=== PATIENT | female | born 1965 | race Caucasian/White ===

== ENCOUNTER 2020-07-27 06:53 | Observation (INO) ==
[2020-07-27] MEDS ORDERED: BUPIVACAINE 0.25% 30 ML VIAL ONE (07:05)
[2020-07-27] MEDS ORDERED: LIDOCAINE HCL 1% 20 ML VIAL ONE (07:05)
[2020-07-27] MEDS ORDERED: BACITRACIN INJ 50,000 UNIT VIAL ONE (07:05)
[2020-07-27] MEDS ORDERED: MIDAZOLAM HCL 5 MG/ML 1 ML VIAL ONE ×2 (07:56→08:58)
[2020-07-27] MEDS ORDERED: fentaNYL citrate 100 MCG/2 ML VIAL ONE ×2 (07:56→08:57)
--- NOTE | 2020-07-27 08:24 | History & Physical Report ---
Date of Service July 27, 2020 Assessment & Plan (1) HOCM (hypertrophic obstructive cardiomyopathy): for dual chamber ICD Present on Admission?: Yes (2) NSVT (nonsustained ventricular tachycardia): (3) Family history of sudden cardiac (SCD): (4) Sinus bradycardia: Admission and Anticipated Discharge Date Admission Date: 07/27/2020 Anticipated date of discharge: 07/28/20 History of Present Illness Primary Care Provider: Mar Devlin MD Pt presents for ICD; no complaints Allergies Allergy/AdvReac Type Severity Reaction Status Date / Time Sulfa (Sulfonamide Allergy Rash Verified 07/27/20 07:24 Antibiotics) Home Medications Home Medications Medication Instructions Recorded Confirmed Type albuterol 90 mcg INHALATION Q4 PRN 07/27/20 07/27/20 History aspirin [Aspir-81] 81 mg DAILY 07/27/20 07/27/20 History effvvda-ntrsrzneourrv-wdnivxtf 2 tab PO Q8 PRN 07/27/20 07/27/20 History [Excedrin Migraine] dulaglutide [Trulicity] 0.75 mg SUBCUT WK 07/27/20 07/27/20 History insulin degludec [Tresiba 130 unit SUBCUT DAILY 07/27/20 07/27/20 History FlexTouch U-200] lisinopril 5 mg DAILY 07/27/20 07/27/20 History metformin [Glucophage XR] 1,000 mg PO BID 07/27/20 07/27/20 History metoprolol succinate [Toprol XL] 12.5 mg PO BID 07/27/20 07/27/20 History multivitamin [Multi-Vitamin] 1 tab PO DAILY 07/27/20 07/27/20 History omeprazole [Prilosec] 20 mg DAILY PRN 07/27/20 07/27/20 History oxybutynin chloride [Ditropan XL] 10 mg PO DAILY 07/27/20 07/27/20 History rosuvastatin [Crestor] 40 mg PO DAILY 07/27/20 07/27/20 History Past Med/Surg History Medical History (Updated 07/27/20 @ 08:23 by Jazmine Sadler DO) Diabetes mellitus Family history of sudden cardiac (SCD) GERD (gastroesophageal reflux disease) HOCM (hypertrophic obstructive cardiomyopathy) Hyperlipemia NSVT (nonsustained ventricular tachycardia) GEORGE (obstructive sleep apnea) Sinus bradycardia Surgical History H/O: hysterectomy Family History Father No problems noted. Brother No problems noted. Social History Smoking Status: Former smoker Hx Alcohol Use: No Hx Substance Use: No Preferred Language: Cypriot Communication Ability: Effective Pharmacist Aide Required: No Beliefs That Will Affect Care: None Current Living Situation: Spouse Feels Safe at Home: Yes Assistive Devices: CPAP and Glasses Review of Systems All systems reviewed & are unremarkable except as noted in HPI & below Physical Exam Physical Exam: aaox3, NAD NC/AT, EOMI Supple No JVD Nrl S1/S2, + murmur CTA b/l no w/r/r soft nt/nd no LE edema b/l skin intact no focal deficits Results & Data ([facility]) Vital Signs (Past 12 Hours) Vital Signs Temp Pulse Resp BP Pulse Ox 07/27/20 07:05 37.2 C 74 16 129/95 98
--- NOTE | 2020-07-27 08:24 | Pre Anesthesia Assessment ---
Date of Service July 27, 2020 Pre Sedation Assessment Vital Signs Temp Pulse Resp BP Pulse Ox 07/27/20 07:05 37.2 C 74 16 129/95 98 Cardiovascular + regular rhythm Respiratory normal respiratory effort, lungs clear to auscultation Pre-Sedation Airway Assessment Smoking Status: Former smoker Hx Sleep Apnea: Yes (wears cpap at night) Short, Thick Neck: Yes Thyromental Distance: < 3.5 Finger Breadths Oral Cavity: + WNL Mallampati Class: I ASA: ASA3 NPO Status Date of Last Intake of Fluids: 07/26/20 Time of Last Intake of Fluids: :30 Date of Last Intake of Solid Food: 07/26/20 Time of Last Intake of Solid Foods: 19:30 Procedure Planning Contraindications for Sedation: none Current Medications Reviewed: Yes Notes The planned sedation has been discussed with the patient. Informed Consent was obtained. I have identified the patient, determined the appropriateness of sedation and have assessed the patient immediately prior to the procedure. All medicine(s) and interventions are by my order.
--- NOTE | 2020-07-27 10:20 | Post Anesthesia Assessment ---
Date of Service July 27, 2020 Post Sedation Assessment Vital Signs Temp Pulse Resp BP Pulse Ox 07/27/20 07:05 37.2 C 74 16 129/95 98 Recovery Score Activity: Moves 4 extremities Respiration: Deep Breath/Cough Circulation: +/-20% PreAnes Value Consciousness: Fully Awake Oxygen Saturation: > 92% On Room Air Discharge Sedation Level of Care: Fast Track Phase II Post Sedation Plan On clinical assessment, the patient appears to have tolerated the sedation without complications. Patient is recovering as anticipated. Patient will continue to be monitored by nursing and may be discharged when sedation discharge criteria are met per below protocol. Upon Completions of procedure up to 15 minutes continue every 5 minute vital signs and the P.A.R. score; then discharge to a Phase I or Fast Track to Phase II per the following guidelines: * Discharge Patient to appropriate Phase II area if PAR is 8 or greater or return to pre- procedure baseline. The post - procedure orders will be as directed. * If PAR score is less than 8 or not return to pre-procedure baseline then patient will follow Phase I monitoring till PAR is reached for Phase II. The Phase I may be done in procedure room or may call to secure a Phase I area. * If naloxone or flumazenil are used for reversal, hold in Phase I for continued monitoring from when last reversal dose was given for a minimum of 60 minutes or longer pending the nurse and/or physician discretion of patient condition before discharge to Phase II. Please call the Sedation Physician to re-evaluate and complete post-note for discharge to Phase II area. Do NOT discharge from procedure sedation or Phase 1 until post- sedation evaluation note is complete by procedure /sedation MD Sedation Discharge Instructions to be given to the patient at discharge to home.
[2020-07-27] MEDS ORDERED: ACETAMINOPHEN 325 MG TAB PO PRN (10:21)
--- NOTE | 2020-07-27 10:21 | Operative Report ---
Post Operative Report Pre & Post Diagnosis SB, HCM Operation Date: 07/27/20 08:00 <No data on this case meets the specified criteria> I identified the patient and participated in the time-out.: Yes Procedure Operation Date: 07/27/20 08:00 Actual Procedures p ICD Insertion Single or Dual - Jazmine Sadler DO Surgeon Jazmine Sadler, DO Feller Buncher Operator none Estimated Blood Loss 25 Findings Consistent with Post-Op Diagnosis Specimens none Description of Procedure see official report I attest to the content of the Intraoperative Record and any orders documented therein. Any exceptions are noted below.
[2020-07-27] MEDS ORDERED: ALBUTEROL HFA 8 GM INHALER INH PRN (10:23)
[2020-07-27] MEDS ORDERED: PANTOprazole 40 MG TAB PO PRN (10:23)
--- NOTE | 2020-07-27 10:27 | Discharge Summary ---
Date of Service July 28, 2020 Admission HPI Per Admitting Provider Pt presents for ICD; no complaints Admission Exam Per Admitting Provider aaox3, NAD NC/AT, EOMI Supple No JVD Nrl S1/S2, +murmur CTA b/l no w/r/r soft nt/nd no LE edema b/l skin intact no focal deficits Principal Diagnosis HCM s/p ICD Discharge Exam aaox3, NAD NC/AT, EOMI Supple No JVD Nrl S1/S2, No murmur CTA b/l no w/r/r soft nt/nd no LE edema b/l skin intact no focal deficits left pectoral incision intact, no hematoma mild ecchymosis Discharge Data Allergies Allergy/AdvReac Type Severity Reaction Status Date / Time Sulfa (Sulfonamide Allergy Rash Verified 07/27/20 07:24 Antibiotics) Procedures Performed Operation Date: 07/27/20 08:00 Actual Procedures p ICD Insertion Single or Dual - Jazmine Sadler, Ordered Studies ECG: SR CXR: No PTX, leads in position ICD Interrogation: Normal function and lead testing since implant 07/27/20 06:54 CL Cath Imgs for PACS use only Routine Hospital Course (1) HOCM (hypertrophic obstructive cardiomyopathy): pt admitted for elective dual chamber ICD. Underwent procedure without any complications; monitored overnight and discharged home. (2) NSVT (nonsustained ventricular tachycardia): (3) Family history of sudden cardiac (SCD): (4) Sinus bradycardia: Total Time Total Time Spent Total Time Spent (In Minutes): 40 Total Time Includes: Examination of the Patient, Discharge Planning, Medication Reconciliation and Other Discharge Plan Discharge Items Patient Disposition: Home - Self-Care Reason For Visit: Hypertrophic Cardiomyopathy S/P DUAL CHAMBER ICD Discharge Diagnosis: HCM s/p ICD Condition on Discharge: Good Activity: As commented below Activity Comment: do not raise the left elbow jessee the left shoulder for 1 month Lifting: No more than 10 pounds Lifting Comment: do not lift more than 10 pounds with the left arm for 2 weeks Bathing: Keep incision dry Bathing Comment: keep dressing on and dry until wound check next week Sexual Activity: After two weeks Non-emergency contact: Aoc [employer] Operations Staff Officer Call non-emergency contact if: you have any medication questions Follow-up/Referrals: Mar Zuluaga MD [Primary Care Provider] - 07/30/20 11:45 am Diet: Heart Healthy Addtl Attending Provider Instructions: device and wound check at [facility] next week on 08/06/2020 at 11:45am wear the surgical bra or sports bra for the next 2 weeks to assist with wound healing Pending Studies at Discharge: No Stand-Alone Forms: [facility] Medications and DC Order Prescriptions: Continued multivitamin Tablet 1 tab PO DAILY RF: 0 oxybutynin chloride [Ditropan XL] 10 mg Tablet Extended Release 24hr 10 mg PO DAILY RF: 0 aspirin 81 mg Tablet,Delayed Release (Dr/Ec) 81 mg DAILY RF: 0 omeprazole 20 mg Capsule,Delayed Release(Dr/Ec) 20 mg DAILY PRN (Reason: Heartburn) RF: 0 lisinopril 5 mg Tablet 5 mg DAILY RF: 0 metoprolol succinate [Toprol XL] 25 mg Tablet Extended Release 24 Hr 12.5 mg PO BID RF: 0 albuterol 90 mcg/actuation Aerosol 90 mcg INHALATION Q4 PRN (Reason: Shortness Of Breath) RF: 0 metformin [Glucophage XR] 500 mg Tablet Extended Release 24 Hr 1,000 mg PO BID RF: 0 Excedrin Migraine 250-250-65 mg Tablet 2 tab PO Q8 PRN (Reason: Headache) RF: 0 rosuvastatin [Crestor] 40 mg Tablet 40 mg PO DAILY RF: 0 Tresiba FlexTouch U-200 200 unit/mL (3 mL) Insulin Pen 130 unit SUBCUT DAILY RF: 0 Trulicity 0.75 mg/0.5 mL Pen Injector 0.75 mg SUBCUT WK RF: 0 Discharge Orders: Discharge Order (Routine); Ordered 07/28/20 Ordered By: Jazmine Sadler Admission Data Admit Date/Time: 07/27/20 09:32 Attending Provider: Jazmine Sadler Admit Provider: Jazmine Sadler Primary Care Provider: Mar Zuluaga Other Interventions: Discharge Summary Assessment (RN) Last Done: 07/28/20 09:15
[2020-07-27] MEDS ORDERED: MoRPHine SULFATE 4 MG/ML 1 ML CARP\\VIAL IV PRN (10:35)
[2020-07-27] MEDS ORDERED: MoRPHine SULFATE 2 MG/ML CARP ONE (10:36)
[2020-07-27] MEDS: EXCEDRIN MIGRAINE: ORDER AWAITING ACTION SCH (11:22)
[2020-07-27] MEDS ORDERED: GLUCOSE 10 TABS/TUBE PO PRN (11:30)
[2020-07-27] MEDS ORDERED: DEXTROSE 50% 50 ML SYRINGE IV PRN (11:30)
[2020-07-27] MEDS ORDERED: GLUCAGON FOR INJ 1 MG VIAL IM PRN (11:30)
[2020-07-27] MEDS ORDERED: GLUCOSE 40% GEL 15 GM TUBE PO PRN (11:30)
[2020-07-27] MEDS ORDERED: CARBOHYDRATES FOR HYPOGLYCEMIA PO PRN (11:30)
--- NOTE | 2020-07-27 16:29 | Electrocardiogram Report ---
Test Reason : Blood Pressure : / mmHG Vent. Rate : 090 BPM Atrial Rate : 090 BPM P-R Int : 148 ms QRS Dur : 084 ms QT Int : 384 ms P-R-T Axes : 028 004 038 degrees QTc Int : 469 ms Normal sinus rhythm Cannot rule out Inferior infarct , age undetermined Abnormal ECG No previous ECGs available Confirmed by Sebastián Gonzalez ([id number]) on 07/27/2020 4:28:53 PM Referred By: Jazmine Sadler Confirmed By:Sebastián Gonzalez
[2020-07-27] MEDS: metFORMIN HCL ER 500 MG TABCR PO SCH (17:06)
[2020-07-27] MEDS ORDERED: INSULIN GLARGINE 100 UNIT/ML VIAL SQ SCH (21:00)
[2020-07-27] MEDS ORDERED: MULTIVITAMIN TAB PO SCH (21:00)
[2020-07-27] MEDS ORDERED: lisinopril 5 MG TAB PO SCH (21:00)
[2020-07-27] MEDS ORDERED: ASPIRIN 81 MG ECTAB PO SCH (21:00)
[2020-07-27] MEDS ORDERED: ROSUVASTATIN CALCIUM 20 MG TAB PO SCH (21:00)
[2020-07-27] MEDS ORDERED: OXYBUTYNIN CHLORIDE XL 5 MG TABCR PO SCH (21:00)
[2020-07-27] MEDS: METOPROLOL SUCC 25MG EXT REL TAB PO SCH (21:38)
[2020-07-27] MEDS: oxyCODONE/ACETAMINOPHEN 5mg/325mg TAB PO PRN (22:29)
[2020-07-28] MEDS: oxyCODONE/ACETAMINOPHEN 5mg/325mg TAB PO PRN (05:35)
--- NOTE | 2020-07-28 07:24 | XRay Report ---
XR chest 2V PA/lateral CLINICAL HISTORY: post ICD COMPARISON STUDY: No previous studies for comparison. FINDINGS: There is a left subclavian pacer/defibrillator present. There is no pneumothorax. Electrode position appears unremarkable. The heart is normal in size. There is no failure. There is no focal p ulmonary consolidation. No pleural effusions are visualized.[ IMPRESSION: No evidence of pneumothorax status post placement of a left subclavian pacer/defibrillato r ACT 112: Negative or not required by law. Electronically signed by: Cooper Flores M.D. 07/28/2020 7:23 AM
[2020-07-28] MEDS: METOPROLOL SUCC 25MG EXT REL TAB PO SCH (08:13)
[2020-07-28] MEDS: metFORMIN HCL ER 500 MG TABCR PO SCH (08:13)
[2020-07-28] MEDS: EXCEDRIN MIGRAINE: ORDER AWAITING ACTION SCH (08:13)
[2020-07-28] MEDS ORDERED: MULTIVITAMIN TAB PO SCH (09:00)
[2020-07-28] MEDS ORDERED: ASPIRIN 81 MG ECTAB PO SCH (09:00)
[2020-07-28] MEDS ORDERED: ROSUVASTATIN CALCIUM 20 MG TAB PO SCH (09:00)
[2020-07-28] MEDS ORDERED: OXYBUTYNIN CHLORIDE XL 5 MG TABCR PO SCH (09:00)
[2020-07-28] MEDS ORDERED: INSULIN GLARGINE 100 UNIT/ML VIAL SQ SCH (09:00)
[2020-07-28] MEDS ORDERED: lisinopril 5 MG TAB PO SCH (09:00)
--- NOTE | 2020-07-28 15:26 | Operative Report (OR) ---
DATE OF OPERATION: 07/27/2020 PREOPERATIVE DIAGNOSES: Hypertrophic cardiomyopathy and sinus bradycardia and nonsustained ventricular tachycardia as well as a family history of sudden cardiac . POSTOPERATIVE DIAGNOSES: Hypertrophic cardiomyopathy and sinus bradycardia and nonsustained ventricular tachycardia as well as a family history of sudden cardiac . PROCEDURE: Dual chamber rate responsive implantable cardiac defibrillator under fluoroscopic guidance. SURGEON: Jazmine Sadler DO. ASSISTANTS: None. ANESTHESIA: Monitored conscious sedation administered under my supervision by Cathy Flowers. Start time 8:40, end time 10:17. A total of 10 mg of Versed, 200 mcg of fentanyl. INTRAVENOUS FLUIDS: 50 mL. ANTIBIOTICS: Two grams of Ancef. CONTRAST: 10 mL. BLOOD LOSS: 20 mL. URINE OUTPUT: Not applicable. SPECIMENS: None. FINDINGS: See below. DRAINS: None. 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 She was recommended a dual chamber ICD due to sinus bradycardia and the hypertrophic cardiomyopathy in addition to the nonsustained VT and her family history of sudden cardiac . CONSENT: Consent was obtained prior to the patient going into the electrophysiology lab. The patient was informed of the risks, benefits and alternatives to the procedure. Risks include but are not limited to sudden cardiac , cardiac arrhythmias, cerebrovascular accident, myocardial infarction, injury to the blood vessels, chamber of the heart, lung, bleeding, and infection. The patient understood these risks and agrees to the procedure as planned. Informed consent was obtained. DESCRIPTION OF THE PROCEDURE: The patient was brought into the electrophysiology lab in a fasting state. She was connected to continuous cardiac cath technician. Timeout was performed to ensure patient's identity and procedure correctly. The patient received prophylactic antibiotics prior to incision. She was prepped and draped over the left infraclavicular space in normal surgical standard fashion. Monitored conscious sedation was given throughout the procedure for the patient's comfort level. [place] precautions were maintained throughout the procedure. 10 mL of 1% lidocaine-bupivacaine mixture were given in the left deltopectoral groove. Incision was made in the left deltopectoral groove. Blunt dissection was performed down. Initially, I opted to do a peripheral venogram and tried to stick the axillary due to the body habitus; however, I was having difficulty getting access through the axillary vein and I hit the artery, so I opted to go back and look for the cephalic. Using blunt dissection, I identified the cephalic vein and the cephalic vein was isolated using 0 silk ties. It was nicked with 11 blade and a guidewire was inserted without any resistance. An 8-Kittitian sheath was inserted over the guidewire without any resistance. The dilator was removed and a guidewire was inserted through the 8-Kittitian sheath to allow for retained venous access. A second guidewire was inserted through the 8-Kittitian sheath to allow for retained venous access. The sheath was removed and a 9.5-Kittitian sheath was inserted over the retained guidewire. The guidewire and dilator removed. However, I did have to swap out for a longer 9-Kittitian OptiSeal sheath due to the entrance of the cephalic into the axillary vein. After doing that, then I was able to pass the right ventricular defibrillator wire lead down into the heart and positioned it interventricular apex under fluoroscopic guidance. There was adequate pacing and sensing thresholds and no diaphragmatic stimulation with high output pacing. The 9.5-Kittitian sheath was peeled away and lead was fixated to pectoralis muscle using 0 silk suture. A 7-Kittitian long OptiSeal sheath was then advanced over the retained guidewire without any resistance. Guidewire and dilator removed. The right atrial lead was then advanced into right atrium and positioned interatrial appendage. I did have to reposition this a number of times as it kept dislodging. Ultimately, it stayed in position and there was adequate pacing and sensing and no diaphragmatic stimulation with high output pacing. The 7-Kittitian sheath was peeled away and the lead was fixated to pectoralis muscle using 0 silk suture. A pursestring using a 2-[address] needle was placed around the puncture site to stop any back flow bleeding. Then, a defibrillator pocket was created using blunt dissection over the pectoralis muscle within the pectoral fascia. The pocket was flushed with copious amounts of bacitracin saline wash and inspected for hemostasis. The defibrillator was then attached to the leads making sure the pins were in appropriate position, passed set screws and set screws were all tightened. Defibrillator was then placed in the pocket, making sure that the leads were lying flat beneath the device. A stay stitch using 0 silk suture was used to secure the device to pectoralis muscle. The incision was then closed in a 3-layer fashion using 2-0 Vicryl interrupted suture followed by 3-0 Vicryl interrupted suture, followed by 4-0 Monocryl running stitch and Dermabond was applied followed by a Telfa and micropore dressing. EQUIPMENT: 1. The pulse generator is a [employer] MRI XTDR SureScan TRSP4T6, serial number [id number]. 2. Right atrial lead Medtronic 5076-52 cm, serial number [id number]. 3. Right ventricular lead, Medtronic 6935M-62 cm, serial number [id number]. INTRAOPERATIVE TESTIN. Right atrial lead: P waves 6.4 millivolts, impedance 541 ohms, threshold 0.8 volts at 0.4 milliseconds. 2. Right ventricular lead: R waves 8.1 millivolts, impedance 625 ohms, threshold 0.5 volts at 0.4 milliseconds. FINAL MEASUREMENTS THROUGH THE DEVICE: 1. Right atrial lead: P waves 4.1 millivolts, impedance 456 ohms, threshold 1 volt at 0.4 milliseconds. 2. Right ventricular lead: R waves 9.3 millivolts, impedance 475 ohms, threshold 0.75 volts at 0.4 milliseconds. FINAL PARAMETERS: MVP-R 60/130, right atrial and right ventricular amplitude 3.5 volts, pulse width 0.4 milliseconds, sensitivity 0.3 millivolts, a VT monitor zone at 140 beats per minute for 32 detection intervals, VT zone at 167 beats per minute for 16 detection intervals and VF zone at 200 beats per minute for 30/40 detection intervals. IMPRESSION: Successful implantation of a dual chamber rate responsive implantable cardiac defibrillator under fluoroscopic guidance along with peripheral venogram secondary to hypertrophic cardiomyopathy, nonsustained ventricular tachycardia, sinus bradycardia, and family history of sudden cardiac . PLAN: Monitor the patient overnight, 12-lead ECG, chest x-ray. She cannot lift the left elbow or the left shoulder for 1 month. She cannot lift more than 10 pounds with the left arm for 2 weeks. She is to keep the dressing on and dry until her wound check next week. Ideally wear a sports bra or a surgical bra to help for wound healing. I attest to the content of the Intraoperative Record and any orders documented therein. Any exception s are noted below.
== END 2020-07-28 09:38 | disposition home or self-care (01) ==
LOC: 2S 06:53 → EP 06:53
PROC: EPB.ICD (2020-07-27 08:00)

== ENCOUNTER 2020-09-06 10:15 | Inpatient (IN) ==
[2020-09-06] MEDS ORDERED: cefTRIAXone SODIUM 2,000 MG/70 ML BAG IV STA (10:58)
--- NOTE | 2020-09-06 11:07 | Emergency Department Note ---
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 Patient underwent uneventful dual-chamber ICD placement on 07/27 performed under conscious sedation with local anesthesia by Dr. Sadler. Patient reports that her postop erative period was unremarkable. She has been cleared to return to work. She states that yesterday morning at 11 AM, she took down her left chest wall dressing, noting that a scab came off with the dressing, and some mucoid drainage. At this point, she also noticed that the area around her incision was red. She has kept the area covered. There continues to be some thick green puslike drainage, as well as a thin watery discharge. She sent her power plant mechanic a picture of the wound yesterday, they contacted her today and directed her to the emergency department for further care and work-up. She denies any pain at the site. There was no trauma to the area, no heavy lifting or specific injury that she can recall. She denies any fever, chills, nausea, vomiting or malaise. Home Medications Medication Instructions Recorded Confirmed Type Excedrin Migraine 2 tab PO Q8 PRN 07/27/20 09/06/20 History Tresiba FlexTouch U-200 90 unit SUBCUT HS 07/27/20 09/06/20 History Trulicity 0.75 mg SUBCUT MO 07/27/20 09/06/20 History lisinopril 5 mg PO DAILY@1900 07/27/20 09/06/20 History metformin [Glucophage XR] 1,000 mg PO BID 07/27/20 09/06/20 History metoprolol succinate [Toprol XL] 12.5 mg PO BID 07/27/20 09/06/20 History multivitamin 1 tab PO DAILY@1900 07/27/20 09/06/20 History omeprazole 20 mg HS 07/27/20 09/06/20 History oxybutynin chloride [Ditropan XL] 10 mg PO DAILY@1900 07/27/20 09/06/20 History rosuvastatin [Crestor] 40 mg PO DAILY@0 07/27/20 09/06/20 History albuterol sulfate 2 puff INHALATION Q4H PRN 09/06/20 09/06/20 History empagliflozin [Jardiance] 10 mg PO DAILY@1900 09/06/20 09/06/20 History Allergies Allergy/AdvReac Type Severity Reaction Status Date / Time Sulfa (Sulfonamide Allergy Rash Verified 07/27/20 07:24 Antibiotics) Past Med/Surg History Medical History DM type 2 (diabetes mellitus, type 2) Family history of sudden cardiac (SCD) GERD (gastroesophageal reflux disease) HOCM (hypertrophic obstructive cardiomyopathy) HTN (hypertension) Hyperlipemia NSVT (nonsustained ventricular tachycardia) GEORGE (obstructive sleep apnea) Sinus bradycardia Surgical History H/O: hysterectomy History of implantable cardioverter-defibrillator (ICD) placement Family History Father Sudden cardiac Brother Sudden cardiac Social History Smoking Status: Former smoker Tobacco Type: Cigarettes Hx Alcohol Use: No Hx Substance Use: No Preferred Language: [place] Communication Ability: Effective Principal Android Developer Required: No Beliefs That Will Affect Care: None Current Living Situation: Spouse Other Information That Helps Us Care for You: No Feels Safe at Home: Yes Safety Concerns: Feels Safe At This Time Assistive Devices: CPAP and Glasses Review of Systems A total of 10 systems reviewed and were otherwise negative Physical Exam Vital Signs Vital Signs - 24 hr 09/06/20 10:20 Temperature 36.7 C Temperature Source Oral Pulse Rate 77 Respiratory Rate 20 Respiratory Effort / Characteristics Non-Labored Respiratory Depth Normal Respiratory Pattern Regular Blood Pressure 162/94 H Blood Pressure Mean 116 Pulse Oximetry 100 Oxygen Delivery Method Room Air Sepsis Recent Fever Within 48 Hours No Sepsis New/Unexplained Change in Mental Status N/A Sepsis Action Taken by Nursing No Action Required CONSTITUTIONAL: Patient is a well-appearing 55-year-old female who is awake and alert and in no acute distress. EYES: Pupils equal, round, reactive to light and accommodation. EOMs intact without nystagmus. Sclera are anicteric. ENT: Tympanic membranes intact, with normal landmarks. External canals are clear. Oral and nasopharynx are clear. Mucous membranes are moist, no lesions, tongue and gums appear normal. CARDIOVASCULAR: Regular rate and rhythm. Peripheral pulses easily palpable. RESPIRATORY: Breath sounds equal and clear to auscultation. INTEGUMENTARY: Examination of the left upper chest wall notes a partially dehisced surgical wound. There is erythema of the wound edges. There is some thick mucoid discharge present. The area is nontender to palpation. There is no swelling. No overt cellulitic changes. The wound was probed gently with a cotton tip applicator moistened with saline. I was able to remove a small piece of suture material from the base of the wound. Cannot directly visualize the implanted defibrillator. LYMPH: No lymphadenopathy. Course Course The patient was seen and assessed as above. Old records were reviewed. IV lock was initiated and laboratory studies were collected. A superficial wound culture was obtained from her surgical site. I did speak with Dr. Santillan with cardiology, as he had spoken with Dr. Sorenson earlier today. Given the patient's current condition, he felt that admission for IV antibiotics were indicated, and to assess whether there is a need to explant the device. Baseline laboratory studies were collected including CBC with differential, BMP, coags and blood cultures x2. Patient was given ceftriaxone 2 g IV. [facility] for further care and work-up. Discussed the patient with LAKESHA Higgins. Patient was admitted for further care and intervention. Administered Medications Sodium Chloride (Nss 1000ml) 1,000 mls @ 80 mls/hr IV .[id number] GARRISON Stop: 09/07/20 02:29 Last Admin: 09/06/20 13:51 Dose: 80 mls/hr Documented by: [id number] Insulin Aspart (Insulin Aspart 100 Units/Ml 3 Ml Pen) 0 units SC ACHS GARRISON Stop: 10/06/20 13:29 Last Admin: 09/06/20 14:39 Dose: Not Given Documented by: [id number] Discontinued Medications Ceftriaxone Sodium (Rocephin) 2,000 mg in 70 mls @ 140 mls/hr IV NOW STA Stop: 09/06/20 11:27 Last Infusion: 09/06/20 12:15 Dose: 0 mls/hr Documented by: [id number] Admin: 09/06/20 11:33 Dose: 140 mls/hr Documented by: [id number] Vancomycin HCl 2,250 mg/ (Sodium Chloride) 545 mls @ 200 mls/hr IV 1330 GARRISON Stop: 09/06/20 16:14 Last Admin: 09/06/20 14:52 Dose: 200 mls/hr Documented by: [id number] Piperacillin Sod/Tazobactam (Sod 4.5 gm/ Dextrose) 120 mls @ 200 mls/hr IV 1330 ONE Stop: 09/06/20 14:05 Last Infusion: 09/06/20 14:37 Dose: 0 mls/hr Documented by: [id number] Admin: 09/06/20 13:51 Dose: 200 mls/hr Documented by: [id number] Potassium Chloride (Potassium Chloride Crtab 20 Meq Tabcr) 40 meq PO NOW STA Stop: 09/06/20 12:41 Last Admin: 09/06/20 13:51 Dose: 40 meq Documented by: [id number] Medical Decision Making Differential Diagnosis Differential diagnoses entertained included wound dehiscence, suture reaction, superficial wound infection, abscess, cellulitis, sepsis, among others. Medical Records Attestation: I reviewed the patient's medical records. Home Medications Current Medication List: was personally reviewed by me Laboratory Data Attestation: I reviewed the patient's lab results. Result diagrams: 09/06/20 11:11 09/06/20 11:11 Lab Results 09/06/20 09/06/20 09/06/20 Range/Units 11:11 11:11 11:11 WBC 13.80 H (4.8-10.8) K/uL RBC 4.70 (4.2-5.4) M/uL Hgb 13.4 (12.0-16.0) g/dL Hct 41.8 (37-47) % MCV 88.9 (80-100) fL MCH 28.5 (25-34) pg MCHC 32.1 (32-36) g/dL RDW Std Deviation 45.8 (36.4-46.3) fL RDW Coeff of Dong 13.9 (11.5-14.5) % Plt Count 292 (130-400) K/uL MPV 10.7 H (7.4-10.4) fL Immature Gran % (Auto) 0.1 % Neut % (Auto) 65.5 % Lymph % (Auto) 24.8 % [place] % (Auto) 7.4 % Eos % (Auto) 1.9 % Baso % (Auto) 0.3 % Neut # (Auto) 9.04 H (1.4-6.5) K/uL Lymph # (Auto) 3.42 H (1.2-3.4) K/uL [place] # (Auto) 1.02 H (0.11-0.59) K/uL Eos # (Auto) 0.26 (0-0.5) K/uL Baso # (Auto) 0.04 (0-0.2) K/uL Immature Gran # (Auto) 0.02 (0.00-0.02) K/uL PT 10.6 (9.0-12.0) Seconds INR 1.0 (0.9-1.1) APTT 26.2 (21.0-31.0) Seconds PTT Ratio 0.9 Sodium 142 (136-145) mmol/L Potassium 3.4 L (3.5-5.1) mmol/L Chloride 108 H (98-107) mmol/L Carbon Dioxide 29 (21-32) mmol/L Anion Gap 5.0 (3-11) BUN 13 (7-18) mg/dl Creatinine 1.26 H (0.6-1.2) mg/dl Est Cr Clr Drug Dosing 55.2 ml/min Est GFR ( Amer) 56.3 Est GFR (Non-Af Amer) 48.6 BUN/Creatinine Ratio 10.3 (10-20) Glucose 79 (70-99) mg/dl Calcium 9.7 (8.5-10.1) mg/dl Magnesium (1.8-2.4) mg/dl 09/06/20 Range/Units 11:11 WBC (4.8-10.8) K/uL RBC (4.2-5.4) M/uL Hgb (12.0-16.0) g/dL Hct (37-47) % MCV (80-100) fL MCH (25-34) pg MCHC (32-36) g/dL RDW Std Deviation (36.4-46.3) fL RDW Coeff of Dong (11.5-14.5) % Plt Count (130-400) K/uL MPV (7.4-10.4) fL Immature Gran % (Auto) % Neut % (Auto) % Lymph % (Auto) % [place] % (Auto) % Eos % (Auto) % Baso % (Auto) % Neut # (Auto) (1.4-6.5) K/uL Lymph # (Auto) (1.2-3.4) K/uL [place] # (Auto) (0.11-0.59) K/uL Eos # (Auto) (0-0.5) K/uL Baso # (Auto) (0-0.2) K/uL Immature Gran # (Auto) (0.00-0.02) K/uL PT (9.0-12.0) Seconds INR (0.9-1.1) APTT (21.0-31.0) Seconds PTT Ratio Sodium (136-145) mmol/L Potassium (3.5-5.1) mmol/L Chloride (98-107) mmol/L Carbon Dioxide (21-32) mmol/L Anion Gap (3-11) BUN (7-18) mg/dl Creatinine (0.6-1.2) mg/dl Est Cr Clr Drug Dosing ml/min Est GFR ( Amer) Est GFR (Non-Af Amer) BUN/Creatinine Ratio (10-20) Glucose (70-99) mg/dl Calcium (8.5-10.1) mg/dl Magnesium 2.6 H (1.8-2.4) mg/dl MDM Narrative See ED Course. Impression & Plan Postoperative wound infection, ICD (implantable cardioverter-defibrillator), dual, in situ Discharge Plan Visit Data Chief Complaint: Infection, Wound Stated Complaint: DEFIB WOUND MAYBE INFECTED ED Provider: Juan Carlos Mata ED Midlevel Provider: Simran Gonzalez Discharge Problem: Postoperative wound infection, ICD (implantable cardioverter-defibrillator), dual, in situ Patient Disposition: Admitted As Inpatient Discharge Instructions Interventions: ED Discharge Assessment Last Done: 09/06/20 12:09
[2020-09-06 11:24] LABS: Basophils # (auto) 0.04 K/uL (0-0.2); Basophils % (auto) 0.3 %; Eosinophils # (auto) 0.26 K/uL (0-0.5); Eosinophils % (auto) 1.9 %; Hematocrit (blood only) 41.8 % (37-47); Hemoglobin 13.4 g/dL (12.0-16.0); Immature Granulocytes # (auto) 0.02 K/uL (0.00-0.02); Immature Granulocytes % (auto) 0.1 %; Lymphocytes # (auto) 3.42 K/uL (1.2-3.4); Lymphocytes % (auto) 24.8 %; Mean Corpuscular Hemoglobin 28.5 pg (25-34); Mean Corpuscular Hgb Conc 32.1 g/dL (32-36); Mean Corpuscular Volume 88.9 fL (80-100); Mean Platelet Volume 10.7 fL (7.4-10.4); Monocytes # (auto) 1.02 K/uL (0.11-0.59); Monocytes % (auto) 7.4 %; Neutrophils # (auto) 9.04 K/uL (1.4-6.5); Neutrophils % (auto) 65.5 %; Platelet Count 292 K/uL (130-400); RDW Coefficient of Variation 13.9 % (11.5-14.5); RDW Standard Deviation 45.8 fL (36.4-46.3)
[2020-09-06 11:38] LABS: Partial Thromboplastin Ratio 0.9; Partial Thromboplastin Time 26.2 Seconds (21.0-31.0); Prothrombin Time 10.6 Seconds (9.0-12.0)
[2020-09-06 11:39] LABS: BUN Creatinine Ratio 10.3 (10-20); Calcium 9.7 mg/dl (8.5-10.1); Creatinine Clr Calc Pharmacy 55.2 ml/min; Est GFR (African American) 56.3; Est GFR (Non-African American) 48.6; Potassium 3.4 mmol/L (3.5-5.1)
[2020-09-06] MEDS ORDERED: PIPERACILL/TAZOBAC CONSULT ACTIVE PRN (12:40)
[2020-09-06] MEDS ORDERED: POTASSIUM CHLORIDE CRTAB 20 MEQ TABCR PO STA (12:40)
[2020-09-06] MEDS ORDERED: VANCOMYCIN CONSULT ACTIVE PRN (12:40)
--- NOTE | 2020-09-06 13:05 | History & Physical Report ---
Date of Service September 06, 2020 Assessment & Plan (1) Implantable cardioverter-defibrillator infection: -Admit to telemetry -Patient presenting for evaluation of infected postop AICD insertion site. AICD placed on 07/27/2020 for management of HOCM after outpatient ZIO showed episodes of NSVT -WBC 13.8K, afebrile, vital stable. Lactate pending -S/p IV ceftriaxone in the ED, will change to IV Vanco and IV Zosyn -Blood and wound cultures -Cardiology consult, case discussed with Dr. Santillan. Dr. Sadler tentatively planning for AICD removal on 09/08. (2) GRETCHEN (acute kidney injury): -Mild -Creatinine 1.2, GFR 40.6 (baseline creat 1.1, GFR > 60) -Hold lisinopril for today -IVF -follow renal functions (3) HOCM (hypertrophic obstructive cardiomyopathy): -Echo 02/2020: EF 60 to 64%, grade 1 diastolic dysfunction, asymmetric LVH involving the septum, maximum thickness 2.2 cm without obstruction -AICD management as above (4) NSVT (nonsustained ventricular tachycardia): -Continue metoprolol (5) DM type 2 (diabetes mellitus, type 2): -Hgb A1c 5.4 08/2020 -Given patient's complex home regimen, will consult glycemic pharmacy (6) HTN (hypertension): -BP controlled, holding lisinopril as above -Continue metoprolol (7) GEORGE (obstructive sleep apnea): -CPAP as per home settings (8) DVT prophylaxis: -SQ Lovenox Admission and Anticipated Discharge Date Admission Date: September 06, 2020 History of Present Illness Chief Complaint: Postop AICD wound infection Primary Care Provider: Mar Devlin MD 55-year-old old female with PMH DM type II, GEOGRE on CPAP, NSVT, hypertrophic cardiomyopathy, AICD placement on 07/27/2020, and other problems listed below who presents the ED for evaluation of postoperative AICD wound infection. Patient underwent AICD placement on 07/27/2020 after outpatient monitor showed episodes of nonsustained V. tach. Patient carries a history of hypertrophic cardiomyopathy. Patient reports she has been doing well since her procedure. Yesterday morning, when she removed the dressing, she reports the the scab came off and there was some purulent drainage. Patient sent a photo to Dr. Sadler who instructed the patient come to the ED for further evaluation. Patient denies fevers and chills. No chest pain, shortness of breath, palpitations. She denies lightheadedness, dizziness, diaphoresis, syncopal events. No abdominal pain, nausea, vomiting, diarrhea. She denies urinary symptoms. In the ED, patient is hemodynamically stable. WBC 13.8K. Patient received IV ceftriaxone. Allergies Allergy/AdvReac Type Severity Reaction Status Date / Time Sulfa (Sulfonamide Allergy Rash Verified 07/27/20 07:24 Antibiotics) Home Medications Medication Instructions Recorded Confirmed Type Excedrin Migraine 2 tab PO Q8 PRN 07/27/20 09/06/20 History Tresiba FlexTouch U-200 90 unit SUBCUT HS 07/27/20 09/06/20 History Trulicity 0.75 mg SUBCUT MO 07/27/20 09/06/20 History lisinopril 5 mg PO DAILY@1900 07/27/20 09/06/20 History metformin [Glucophage XR] 1,000 mg PO BID 07/27/20 09/06/20 History metoprolol succinate [Toprol XL] 12.5 mg PO BID 07/27/20 09/06/20 History multivitamin 1 tab PO DAILY@1900 07/27/20 09/06/20 History omeprazole 20 mg HS 07/27/20 09/06/20 History oxybutynin chloride [Ditropan XL] 10 mg PO DAILY@1900 07/27/20 09/06/20 History rosuvastatin [Crestor] 40 mg PO DAILY@1900 07/27/20 09/06/20 History albuterol sulfate 2 puff INHALATION Q4H PRN 09/06/20 09/06/20 History empagliflozin [Jardiance] 10 mg PO DAILY@1900 09/06/20 09/06/20 History Past Med/Surg History Medical History DM type 2 (diabetes mellitus, type 2) Family history of sudden cardiac (SCD) GERD (gastroesophageal reflux disease) HOCM (hypertrophic obstructive cardiomyopathy) HTN (hypertension) Hyperlipemia NSVT (nonsustained ventricular tachycardia) GEORGE (obstructive sleep apnea) Sinus bradycardia Surgical History H/O: hysterectomy History of implantable cardioverter-defibrillator (ICD) placement Family History Father Sudden cardiac Brother Sudden cardiac Social History Smoking Status: Former smoker Tobacco Type: Cigarettes Hx Alcohol Use: No Hx Substance Use: No Preferred Language: Romansh Communication Ability: Effective Jingle Writer Required: No Beliefs That Will Affect Care: None Current Living Situation: Spouse Other Information That Helps Us Care for You: No Feels Safe at Home: Yes Safety Concerns: Feels Safe At This Time Assistive Devices: CPAP and Glasses Review of Systems Review of Systems: ROS per HPI, all other systems reviewed and negative Physical Exam Constitutional: WD/WN, vitals as above + obese Eyes: PERRL, conjunctivae normal, anicteric sclerae ENMT: external ear and nose normal, oropharynx normal Respiratory: normal respiratory effort, lungs clear to auscultation Cardiovascular: Rate/Rhythm: regular rate and regular rhythm Vessels: normal peripheral pulses Extremities: no edema Chest (Breasts): Additional Comments: Left chest AICD insertion site partially dehisced with a small amount of purulent drainage and surrounding erythema Gastrointestinal (Abdomen): normal bowel sounds, soft, nontender, no hepatosplenomegaly Musculoskeletal: no cyanosis or clubbing, extremities motor strength 5/5 Skin: no rashes, warm and dry Neurologic: PERRL, EOMI, accommodation nl, no face palsy, no dysarthria Psychiatric: A+Ox3, euthymic affect Results & Data Results & Data ([facility]) Vital Signs (Past 12 Hours) Vital Signs Temp Pulse Pulse Resp BP BP Pulse Ox 09/06/20 12:18 36.7 C 66 20 145/91 H 98 09/06/20 12:09 69 20 146/83 H 99 09/06/20 10:20 36.7 C 77 20 162/94 H 100 Laboratory Results Short CBC 09/06/20 Range/Units 11:11 WBC 13.80 H (4.8-10.8) K/uL Hgb 13.4 (12.0-16.0) g/dL Hct 41.8 (37-47) % Plt Count 292 (130-400) K/uL BMP 09/06/20 11:11 Sodium 142 Potassium 3.4 L Chloride 108 H Carbon Dioxide 29 BUN 13 Creatinine 1.26 H Glucose 79 Calcium 9.7 Code Status & VTE Plan Code Status Patient is a full code as per my discussion with her. VTE Prophylaxis Plan VTE Prophylaxis will be ordered: Yes Supervising Physician Co-Signing Physician Notes HISTORY: Record reviewed. Patient interviewed and examined in her room around 12:30. Care coordinated with LAKESHA Higgins. Please refer to her documentation for complete history. Briefly, 55 YO female with history of hypertrophic obstructive cardiomyopathy, nonsustained VT, DM, and other problems as noted. AICD placed by Dr. Sadler 07/27/20. Yesterday, patient noted purulent and bloody drainage from incision. No fever, chills, sweats. Blood sugars well-controlled at home. EXAM: General- no distress Lungs- clear to auscultation; no respiratory distress Cardiovascular- RRR; no JVD; no pretibial edema Chest- AICD site left upper chest; incision open with surrounding erythema Abdomen- + bowel sounds, soft, nontender Extremities- no cyanosis; no calf tenderness Neuro- alert, oriented Skin- warm & dry DATA: WBC 13,800. K 3.4. Random glucose 79. Other lab studies as noted. ASSESSMENT AND PLAN: INFECTED AICD SITE Does not appear to be septic. Blood and wound cultures obtained. Empiric Rx with vancomycin and piperacillin / tazobactam pending micro data. Check baseline ESR and CRP. HYPERTROPHIC CARDIOMYOPATHY / NONSUSTAINED VT Management per Cardiology. DM TYPE 2 Well-controlled at home. Follow and titrate therapy. HYPOKALEMIA K 3.4. Not on any diuretics. Mg++ OK. Replace. Follow. Please refer to [facility]'s documentation for discussion of other issues.
--- NOTE | 2020-09-06 13:14 | Cardiology Consultation ---
Date of Consultation September 06, 2020 Assessment & Plan (1) Infection of pacemaker pocket: 55-year-old female who underwent dual-chamber defibrillator implantation, prophylactic history of hypertrophic cardiomyopathy, high risk. Notes device site dehiscence yesterday with only small amount of drainage no overt purulence No fevers or chills or symptoms to suggest acute sepsis Plan: Wound and blood cultures. Begin IV antibiotics Tentative plans for device extraction 09/08/2020 (2) ICD (implantable cardioverter-defibrillator), dual, in situ: (3) HOCM (hypertrophic obstructive cardiomyopathy): History of Present Illness Reason for Consultation: Defibrillator pocket infection/dehiscence Requesting Physician: Dr. Linares Attending Physician: Wil Linares MD History of Present Illness Patient is a 55-year-old female whose history is notable for 1. 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 Type 2 diabetes mellitus insulin requiring 4. Hyperlipidemia 5. Obstructive sleep apnea with nocturnal hypoxia 6. Asymptomatic nonsustained ventricular tachycardia 7. Prophylactic dual-chamber defibrillator implantation 07/27/2020, [employer] Evera DDMB 104 MRI Patient presents now noting wound dehiscence day prior overlying defibrillator. Notes removed bandage over top and pulled off eschar with now open wound. No fevers chills. No tenderness at the pacer site. No defibrillator activation. No chest pains or shortness of breath. No orthopnea worsening peripheral edema. Blood sugars somewhat variable. No other complaints active at work Allergies Allergy/AdvReac Type Severity Reaction Status Date / Time Sulfa (Sulfonamide Allergy Rash Verified 07/27/20 07:24 Antibiotics) Home Medications Medication Instructions Recorded Confirmed Type Excedrin Migraine 2 tab PO Q8 PRN 07/27/20 09/06/20 History Tresiba FlexTouch U-200 90 unit SUBCUT HS 07/27/20 09/06/20 History Trulicity 0.75 mg SUBCUT MO 07/27/20 09/06/20 History lisinopril 5 mg PO DAILY@1900 07/27/20 09/06/20 History metformin [Glucophage XR] 1,000 mg PO BID 07/27/20 09/06/20 History metoprolol succinate [Toprol XL] 12.5 mg PO BID 07/27/20 09/06/20 History multivitamin 1 tab PO DAILY@189907/27/20 09/06/20 History omeprazole 20 mg HS 07/27/20 09/06/20 History oxybutynin chloride [Ditropan XL] 10 mg PO DAILY@189907/27/20 09/06/20 History rosuvastatin [Crestor] 40 mg PO DAILY@189907/27/20 09/06/20 History albuterol sulfate 2 puff INHALATION Q4H PRN 09/06/20 09/06/20 History empagliflozin [Jardiance] 10 mg PO DAILY@189909/06/20 09/06/20 History Patient History Medical History DM type 2 (diabetes mellitus, type 2) Family history of sudden cardiac (SCD) GERD (gastroesophageal reflux disease) HOCM (hypertrophic obstructive cardiomyopathy) HTN (hypertension) Hyperlipemia NSVT (nonsustained ventricular tachycardia) GEORGE (obstructive sleep apnea) Sinus bradycardia Surgical History H/O: hysterectomy History of implantable cardioverter-defibrillator (ICD) placement Family History Father Sudden cardiac Brother Sudden cardiac Social History Smoking Status: Former smoker Tobacco Type: Cigarettes Hx Alcohol Use: No Hx Substance Use: No Preferred Language: German Communication Ability: Effective Manager Packaging Required: No Beliefs That Will Affect Care: None Current Living Situation: Spouse Other Information That Helps Us Care for You: No Feels Safe at Home: Yes Safety Concerns: Feels Safe At This Time Assistive Devices: CPAP and Glasses Review of Systems Review of Systems: All systems reviewed & are unremarkable except as noted in HPI & below Physical Exam Constitutional: WD/WN, vitals as above + obese; no acute distress Eyes: PERRL, conjunctivae normal, anicteric sclerae ENMT: external ear and nose normal, oropharynx normal Neck: trachea midline, no thyromegaly Respiratory: normal respiratory effort, lungs clear to auscultation Cardiovascular: Rate/Rhythm: regular rate and regular rhythm Heart Sounds: normal S1 and normal S2; no gallop and no murmur Palpation: normal PMI Vessels: normal carotid upstroke and radial pulses present; no JVD and no carotid bruit Extremities: no edema Chest (Breasts): Chest: + pacemaker (Pacemaker defibrillator incision, open wound without surrounding erythema ) Gastrointestinal (Abdomen): normal bowel sounds, soft, nontender, no hepatosplenomegaly Musculoskeletal: no cyanosis or clubbing, extremities motor strength 5/5 Skin: no rashes, warm and dry Neurologic: PERRL, EOMI, accommodation nl, no face palsy, no dysarthria Psychiatric: A+Ox3, euthymic affect Results & Data ([facility]) Vital Signs (Past 12 Hours) Vital Signs Temp Pulse Pulse Resp BP BP Pulse Ox 09/06/20 13:01 74 09/06/20 12:18 36.7 C 66 20 145/91 H 98 09/06/20 12:09 69 20 146/83 H 99 09/06/20 10:20 36.7 C 77 20 162/94 H 100 Laboratory Results Laboratory Results - last 24 hr 09/06/20 09/06/20 09/06/20 11:11 11:11 11:11 WBC 13.80 H RBC 4.70 Hgb 13.4 Hct 41.8 MCV 88.9 MCH 28.5 MCHC 32.1 RDW Std Deviation 45.8 RDW Coeff of Dong 13.9 Plt Count 292 MPV 10.7 H Immature Gran % (Auto) 0.1 Neut % (Auto) 65.5 Lymph % (Auto) 24.8 [place] % (Auto) 7.4 Eos % (Auto) 1.9 Baso % (Auto) 0.3 Neut # (Auto) 9.04 H Lymph # (Auto) 3.42 H [place] # (Auto) 1.02 H Eos # (Auto) 0.26 Baso # (Auto) 0.04 Immature Gran # (Auto) 0.02 PT 10.6 INR 1.0 APTT 26.2 PTT Ratio 0.9 Sodium 142 Potassium 3.4 L Chloride 108 H Carbon Dioxide 29 Anion Gap 5.0 BUN 13 Creatinine 1.26 H Est Cr Clr Drug Dosing 55.2 Est GFR ( Amer) 56.3 Est GFR (Non-Af Amer) 48.6 BUN/Creatinine Ratio 10.3 Glucose 79 Calcium 9.7 Magnesium SARS-CoV-2 Ag (Rapid) 09/06/20 09/06/20 11:11 11:52 WBC RBC Hgb Hct MCV MCH MCHC RDW Std Deviation RDW Coeff of Dong Plt Count MPV Immature Gran % (Auto) Neut % (Auto) Lymph % (Auto) [place] % (Auto) Eos % (Auto) Baso % (Auto) Neut # (Auto) Lymph # (Auto) [place] # (Auto) Eos # (Auto) Baso # (Auto) Immature Gran # (Auto) PT INR APTT PTT Ratio Sodium Potassium Chloride Carbon Dioxide Anion Gap BUN Creatinine Est Cr Clr Drug Dosing Est GFR ( Amer) Est GFR (Non-Af Amer) BUN/Creatinine Ratio Glucose Calcium Magnesium 2.6 H SARS-CoV-2 Ag (Rapid) Negative
[2020-09-06] MEDS ORDERED: PHARMACY GLYCEMIC MGMT CONSULT PRN (13:21)
--- NOTE | 2020-09-06 13:22 | Communication Note ---
Date of Service: September 06, 2020 HISTORY: Record reviewed. Patient interviewed and examined in her room around 12:30. Care coordinated with LAKESHA Higgins. Please refer to her documentation for complete history. Briefly, 55 YO female with history of hypertrophic obstructive cardiomyopathy, nonsustained VT, DM, and other problems as noted. AICD placed by Dr. Sadler 07/27/20. Yesterday, patient noted purulent and bloody drainage from incision. No fever, chills, sweats. Blood sugars well-controlled at home. EXAM: General- no distress Lungs- clear to auscultation; no respiratory distress Cardiovascular- RRR; no JVD; no pretibial edema Chest- AICD site left upper chest; incision open with surrounding erythema Abdomen- + bowel sounds, soft, nontender Extremities- no cyanosis; no calf tenderness Neuro- alert, oriented Skin- warm & dry DATA: WBC 13,800. K 3.4. Random glucose 79. Other lab studies as noted. ASSESSMENT AND PLAN: INFECTED AICD SITE Does not appear to be septic. Blood and wound cultures obtained. Empiric Rx with vancomycin and piperacillin / tazobactam pending micro data. Check baseline ESR and CRP. HYPERTROPHIC CARDIOMYOPATHY / NONSUSTAINED VT Management per Cardiology. DM TYPE 2 Well-controlled at home. Follow and titrate therapy. HYPOKALEMIA K 3.4. Not on any diuretics. Mg++ OK. Replace. Follow. Please refer to GET Hurley's documentation for discussion of other issues.
[2020-09-06] MEDS ORDERED: CARBOHYDRATES FOR HYPOGLYCEMIA PO PRN (13:30)
[2020-09-06] MEDS ORDERED: DEXTROSE 50% 50 ML SYRINGE IV PRN (13:30)
[2020-09-06] MEDS ORDERED: GLUCOSE 10 TABS/TUBE PO PRN (13:30)
[2020-09-06] MEDS ORDERED: VANCOMYCIN HCL 2,250 MG in SODIUM CHLORIDE 0.9% 500 ML IV SCH (13:30)
[2020-09-06] MEDS ORDERED: GLUCOSE 40% GEL 15 GM TUBE PO PRN (13:30)
[2020-09-06] MEDS ORDERED: PIPERACILLIN/TAZOBACTAM 4.5 GM in DEXTROSE 5% 100 ML IV ONE (13:30)
[2020-09-06] MEDS ORDERED: GLUCAGON FOR INJ 1 MG VIAL IM PRN (13:30)
[2020-09-06] MEDS ORDERED: SODIUM CHLORIDE 0.9% 1000ML 1,000 ML IV SCH (14:00)
--- NOTE | 2020-09-06 14:15 | Pharmacy Report ---
Pharmacy Abx/Gly Intl Consult - Date of Service September 06, 2020 - Scope Pharmacy has been consulted by LAKESHA Higgins to manage vancomycin, Zosyn, and glycemic control for this patient as per the Pharmacy & Therapeutics Committee approved dosing protocols. - Subjective The patient is a 55 year old F admitted on 09/06/20 11:39. - Objective Vital Signs (Past 12hrs): Vital Signs Temp Pulse Pulse Resp BP BP Pulse Ox 09/06/20 13:01 74 09/06/20 12:18 36.7 C 66 20 145/91 H 98 09/06/20 12:09 69 20 146/83 H 99 09/06/20 10:20 36.7 C 77 20 162/94 H 100 Accuchecks BSG (last 24hrs): 09/06/20 11:11 Glucose 79 Lab Results (24hrs): Laboratory Results - last 24 hr 09/06/20 09/06/20 09/06/20 11:11 11:11 11:11 WBC 13.80 H RBC 4.70 Hgb 13.4 Hct 41.8 MCV 88.9 MCH 28.5 MCHC 32.1 RDW Std Deviation 45.8 RDW Coeff of Dong 13.9 Plt Count 292 MPV 10.7 H Immature Gran % (Auto) 0.1 Neut % (Auto) 65.5 Lymph % (Auto) 24.8 Pettis % (Auto) 7.4 Eos % (Auto) 1.9 Baso % (Auto) 0.3 Neut # (Auto) 9.04 H Lymph # (Auto) 3.42 H Pettis # (Auto) 1.02 H Eos # (Auto) 0.26 Baso # (Auto) 0.04 Immature Gran # (Auto) 0.02 ESR PT 10.6 INR 1.0 APTT 26.2 PTT Ratio 0.9 Sodium 142 Potassium 3.4 L Chloride 108 H Carbon Dioxide 29 Anion Gap 5.0 BUN 13 Creatinine 1.26 H Est Cr Clr Drug Dosing 55.2 Est GFR ( Amer) 56.3 Est GFR (Non-Af Amer) 48.6 BUN/Creatinine Ratio 10.3 Glucose 79 Lactate Calcium 9.7 Magnesium C-Reactive Protein SARS-CoV-2 Ag (Rapid) 09/06/20 09/06/20 09/06/20 11:11 11:52 13:19 WBC RBC Hgb Hct MCV MCH MCHC RDW Std Deviation RDW Coeff of Dong Plt Count MPV Immature Gran % (Auto) Neut % (Auto) Lymph % (Auto) Pettis % (Auto) Eos % (Auto) Baso % (Auto) Neut # (Auto) Lymph # (Auto) Pettis # (Auto) Eos # (Auto) Baso # (Auto) Immature Gran # (Auto) ESR PT INR APTT PTT Ratio Sodium Potassium Chloride Carbon Dioxide Anion Gap BUN Creatinine Est Cr Clr Drug Dosing Est GFR ( Amer) Est GFR (Non-Af Amer) BUN/Creatinine Ratio Glucose Lactate 1.5 Calcium Magnesium 2.6 H C-Reactive Protein SARS-CoV-2 Ag (Rapid) Negative 09/06/20 09/06/20 13:21 13:21 WBC RBC Hgb Hct MCV MCH MCHC RDW Std Deviation RDW Coeff of Dong Plt Count MPV Immature Gran % (Auto) Neut % (Auto) Lymph % (Auto) Pettis % (Auto) Eos % (Auto) Baso % (Auto) Neut # (Auto) Lymph # (Auto) Pettis # (Auto) Eos # (Auto) Baso # (Auto) Immature Gran # (Auto) ESR Pending PT INR APTT PTT Ratio Sodium Potassium Chloride Carbon Dioxide Anion Gap BUN Creatinine Est Cr Clr Drug Dosing Est GFR ( Amer) Est GFR (Non-Af Amer) BUN/Creatinine Ratio Glucose Lactate Calcium Magnesium C-Reactive Protein Pending SARS-CoV-2 Ag (Rapid) Micro Results: 09/06/20 11:00 Gram Stain - Final Chest Wound Culture - Pending 09/06/20 11:22 Aerobic Blood Culture - Pending Blood Anaerobic Blood Culture - Pending 09/06/20 11:11 Aerobic Blood Culture - Pending Blood Anaerobic Blood Culture - Pending - Recent Pertinent Medications Recent Pertinent Medications/Risk Factors for Insulin Resist: Outpatient Anti-diabetic Regimen: * Tresiba 90 units SC HS * Trulicity 0.75 mg SC weekly (Sunday) * Jardiance 10 mg PO daily * Metformin XR 1000 mg PO BIDM * A1c: 5.4% (08/2020 - per H&P) - Assessment * BC is a 55 year old female who presents today with concern for postop AICD wound infection * Patient noticed purulent discharge when she removed her dressing yesterday - Dr. Zazzali instructed patient to come to ED * Initiated on empiric broad spectrum antibiotics with vancomycin and Zosyn * SCr elevated compared to baseline (1.26 mg/dL, baseline of 1.1 mg/dL per H&P) * Tentative plan is for ICD removal on 09/08/20 * Patient afebrile, but leukocytosis present (13.8 K) * Patient has history of T2DM (HbA1c of 5.4% per H&P) * Only available BSG is 79 mg/dL * Ordered T2DM diet * Will initiate aggressive Novolog dosing based on outpatient regimen and Tresiba dose of 90 units daily * Lantus scale this evening to provide maximum of 90 units (home dose) - Plan ANTIMICROBIAL THERAPY Vancomycin IV * Loading dose: 2250 mg (24 mg/kg) * Maintenance dose: 1250 mg IV (13 mg/kg) every 12 hours * Goal trough level empirically: 15-20 mcg/mL * Will reassess renal function in AM given concern for GRETCHEN, adjust dosing if necessary, and order follow-up vanco trough Piperacillin/Tazobactam * 4.5 g bolus administered over 30 minutes, then 4.5 g IV extended infusion every 8 hours for CrCl greater than 20 mL/min * Aggressive dosing selected due to BMI > 35 INPATIENT GLYCEMIC CONTROL: Oral Agents * Hold outpatient oral diabetes medications. Basal Insulin * Lantus 50-90 units SQ HS (see EHR for details) Bolus Insulin * NovoLog per scale ACHS or Q6hrs while NPO * Goal Range: Low 110 mg/dL - High 140 mg/dL * Correction Factor: 20 mg/dL/unit * Nutritional / Prandial insulin per carb ratio of 1 unit per 7 grams CHO consumed * Please note that the plan above was derived based on current level of insulin resistance and hospital stress. These recommendations are appropriate for inpatient admission only. Plan of care upon discharge will need to be reassessed to avoid potential outpatient hypo/hyperglycemia. Pharmacy will follow patient and adjust orders on a daily basis. Thank you for allowing us to participate in this patients care.
[2020-09-06] MEDS: INSULIN ASPART 100 UNITS/ML 3 ML PEN SC SCH ×3 (14:39→20:25)
[2020-09-06] MEDS: PIPERACILLIN/TAZOBACTAM 4.5 GM in DEXTROSE 5% 100 ML IV SCH (17:35)
[2020-09-06] MEDS: PANTOprazole 40 MG TAB PO SCH (20:26)
[2020-09-06] MEDS: OXYBUTYNIN CHLORIDE XL 5 MG TABCR PO SCH (20:26)
[2020-09-06] MEDS: MULTIVITAMIN TAB PO SCH (20:26)
[2020-09-06] MEDS: ROSUVASTATIN CALCIUM 20 MG TAB PO SCH (20:26)
[2020-09-06] MEDS: METOPROLOL SUCC 25MG EXT REL TAB PO SCH (20:27)
[2020-09-06] MEDS: ACETAMINOPHEN 325 MG TAB PO PRN (20:29)
[2020-09-06] MEDS ORDERED: INSULIN GLARGINE SOLOSTAR 100 UNITS/ML 3 ML PEN SC SCH ×2 (21:00)
[2020-09-06] MEDS ORDERED: ENOXAPARIN INJ 40 MG/0.4 ML SYR SQ SCH (21:00)
[2020-09-07] MEDS ORDERED: INSULIN ASPART 100 UNITS/ML 3 ML PEN SC SCH (02:00)
[2020-09-07] MEDS: PIPERACILLIN/TAZOBACTAM 4.5 GM in DEXTROSE 5% 100 ML IV SCH ×2 (02:21→11:06)
[2020-09-07] MEDS ORDERED: VANCOMYCIN HCL 1,250 MG in SODIUM CHLORIDE 0.9% 250 ML IV SCH (03:00)
[2020-09-07 07:34] LABS: Hematocrit (blood only) 36.7 % (37-47); Hemoglobin 11.7 g/dL (12.0-16.0); Mean Corpuscular Hemoglobin 28.3 pg (25-34); Mean Corpuscular Hgb Conc 31.9 g/dL (32-36); Mean Corpuscular Volume 88.9 fL (80-100); Mean Platelet Volume 10.6 fL (7.4-10.4); Platelet Count 246 K/uL (130-400); RDW Coefficient of Variation 14.1 % (11.5-14.5); RDW Standard Deviation 46.3 fL (36.4-46.3); Red Blood Count 4.13 M/uL (4.2-5.4); White Blood Count 9.33 K/uL (4.8-10.8)
[2020-09-07 08:02] LABS: BUN Creatinine Ratio 10.9 (10-20); Calcium 8.7 mg/dl (8.5-10.1); Creatinine Clr Calc Pharmacy 53.4 ml/min; Est GFR (African American) 53.7; Est GFR (Non-African American) 46.4; Potassium 3.8 mmol/L (3.5-5.1)
[2020-09-07] MEDS: INSULIN ASPART 100 UNITS/ML 3 ML PEN SC SCH ×4 (08:24→20:34)
[2020-09-07] MEDS: METOPROLOL SUCC 25MG EXT REL TAB PO SCH ×2 (08:26→20:29)
--- NOTE | 2020-09-07 10:47 | Cardiology Progress Note ---
Date of Service September 07, 2020 Assessment & Plan (1) Infection of pacemaker pocket: 55-year-old female who underwent dual-chamber defibrillator implantation, prophylactic history of hypertrophic cardiomyopathy, high risk. Admitted with wound dehiscence. Blood cultures without growth this morning. Wound culture growing staph aureus sensitivity pending Patient nontoxic and tolerating antibiotics. White cell count decreased Plan: Device extraction in a.m., continue antibiotics and await culture sensitivity. Duration of antibiotic therapy to be dependent on cultures and findings at time of device extraction (2) ICD (implantable cardioverter-defibrillator), dual, in situ: (3) HOCM (hypertrophic obstructive cardiomyopathy): Admission and Anticipated Discharge Date Admission Date: September 06, 2020 Subjective Patient was seen and examined, chart, medications, telemetry reviewed Patient without complaint. No dizziness or lightheadedness. No fevers or chills. AICD site is closed without significant drainage Review of Systems Review of Systems: All systems reviewed & are unremarkable except as noted in HPI & below Physical Exam Constitutional: WD/WN, vitals as above + obese; no acute distress Eyes: PERRL, conjunctivae normal, anicteric sclerae ENMT: external ear and nose normal, oropharynx normal Neck: trachea midline, no thyromegaly Respiratory: normal respiratory effort, lungs clear to auscultation Cardiovascular: Rate/Rhythm: regular rate and regular rhythm Heart Sounds: normal S1 and normal S2; no gallop and no murmur Palpation: normal PMI Vessels: normal carotid upstroke and radial pulses present; no JVD and no carotid bruit Extremities: no edema Chest (Breasts): Chest: + pacemaker (Pacemaker defibrillator incision, open wound without surrounding erythema ) Gastrointestinal (Abdomen): normal bowel sounds, soft, nontender, no hepatosplenomegaly Musculoskeletal: no cyanosis or clubbing, extremities motor strength 5/5 Skin: no rashes, warm and dry Neurologic: PERRL, EOMI, accommodation nl, no face palsy, no dysarthria Psychiatric: A+Ox3, euthymic affect Results & Data ([facility]) Vital Signs (Past 12 Hours) Vital Signs Temp Pulse Pulse Resp BP Pulse Ox 09/07/20 08:13 36.8 C 76 18 109/62 99 09/07/20 07:20 67 09/07/20 03:31 36.6 C 81 18 102/64 95 09/06/20 23:23 36.5 C 59 L 18 106/71 94 Laboratory Results Laboratory Results - last 24 hr 09/06/20 09/06/20 09/06/20 11:11 11:11 11:11 WBC 13.80 H RBC 4.70 Hgb 13.4 Hct 41.8 MCV 88.9 MCH 28.5 MCHC 32.1 RDW Std Deviation 45.8 RDW Coeff of Dong 13.9 Plt Count 292 MPV 10.7 H Immature Gran % (Auto) 0.1 Neut % (Auto) 65.5 Lymph % (Auto) 24.8 Russell % (Auto) 7.4 Eos % (Auto) 1.9 Baso % (Auto) 0.3 Neut # (Auto) 9.04 H Lymph # (Auto) 3.42 H Russell # (Auto) 1.02 H Eos # (Auto) 0.26 Baso # (Auto) 0.04 Immature Gran # (Auto) 0.02 ESR PT 10.6 INR 1.0 APTT 26.2 PTT Ratio 0.9 Sodium 142 Potassium 3.4 L Chloride 108 H Carbon Dioxide 29 Anion Gap 5.0 BUN 13 Creatinine 1.26 H Est Cr Clr Drug Dosing 55.2 Est GFR ( Amer) 56.3 Est GFR (Non-Af Amer) 48.6 BUN/Creatinine Ratio 10.3 Glucose 79 POC Glucose Lactate Calcium 9.7 Magnesium C-Reactive Protein SARS-CoV-2 Ag (Rapid) 09/06/20 09/06/20 09/06/20 11:11 11:52 13:19 WBC RBC Hgb Hct MCV MCH MCHC RDW Std Deviation RDW Coeff of Dong Plt Count MPV Immature Gran % (Auto) Neut % (Auto) Lymph % (Auto) Russell % (Auto) Eos % (Auto) Baso % (Auto) Neut # (Auto) Lymph # (Auto) Russell # (Auto) Eos # (Auto) Baso # (Auto) Immature Gran # (Auto) ESR PT INR APTT PTT Ratio Sodium Potassium Chloride Carbon Dioxide Anion Gap BUN Creatinine Est Cr Clr Drug Dosing Est GFR ( Amer) Est GFR (Non-Af Amer) BUN/Creatinine Ratio Glucose POC Glucose Lactate 1.5 Calcium Magnesium 2.6 H C-Reactive Protein SARS-CoV-2 Ag (Rapid) Negative 1109/06/20 09/06/20 13:21 13:21 16:24 WBC RBC Hgb Hct MCV MCH MCHC RDW Std Deviation RDW Coeff of Dong Plt Count MPV Immature Gran % (Auto) Neut % (Auto) Lymph % (Auto) Russell % (Auto) Eos % (Auto) Baso % (Auto) Neut # (Auto) Lymph # (Auto) Russell # (Auto) Eos # (Auto) Baso # (Auto) Immature Gran # (Auto) ESR 15 PT INR APTT PTT Ratio Sodium Potassium Chloride Carbon Dioxide Anion Gap BUN Creatinine Est Cr Clr Drug Dosing Est GFR ( Amer) Est GFR (Non-Af Amer) BUN/Creatinine Ratio Glucose POC Glucose 89 Lactate Calcium Magnesium C-Reactive Protein 0.60 H SARS-CoV-2 Ag (Rapid) 09/06/20 09/07/20 09/07/20 20:24 02:13 06:45 WBC 9.33 RBC 4.13 L Hgb 11.7 L Hct 36.7 L MCV 88.9 MCH 28.3 MCHC 31.9 L RDW Std Deviation 46.3 RDW Coeff of Dong 14.1 Plt Count 246 MPV 10.6 H Immature Gran % (Auto) Neut % (Auto) Lymph % (Auto) Russell % (Auto) Eos % (Auto) Baso % (Auto) Neut # (Auto) Lymph # (Auto) Russell # (Auto) Eos # (Auto) Baso # (Auto) Immature Gran # (Auto) ESR PT INR APTT PTT Ratio Sodium Potassium Chloride Carbon Dioxide Anion Gap BUN Creatinine Est Cr Clr Drug Dosing Est GFR ( Amer) Est GFR (Non-Af Amer) BUN/Creatinine Ratio Glucose POC Glucose 105 H 91 Lactate Calcium Magnesium C-Reactive Protein SARS-CoV-2 Ag (Rapid) 09/07/20 09/07/20 06:45 07:30 WBC RBC Hgb Hct MCV MCH MCHC RDW Std Deviation RDW Coeff of Dong Plt Count MPV Immature Gran % (Auto) Neut % (Auto) Lymph % (Auto) Russell % (Auto) Eos % (Auto) Baso % (Auto) Neut # (Auto) Lymph # (Auto) Russell # (Auto) Eos # (Auto) Baso # (Auto) Immature Gran # (Auto) ESR PT INR APTT PTT Ratio Sodium 142 Potassium 3.8 Chloride 111 H Carbon Dioxide 26 Anion Gap 5.0 BUN 14 Creatinine 1.31 H Est Cr Clr Drug Dosing 53.4 Est GFR ( Amer) 53.7 Est GFR (Non-Af Amer) 46.4 BUN/Creatinine Ratio 10.9 Glucose 82 POC Glucose 84 Lactate Calcium 8.7 Magnesium C-Reactive Protein SARS-CoV-2 Ag (Rapid)
[2020-09-07] MEDS ORDERED: SODIUM CHLORIDE 0.9% 1000ML 1,000 ML IV SCH (11:30)
--- NOTE | 2020-09-07 13:10 | Pharmacy Report ---
Pharmacy Glycemic Short Note 2 - Date of Service September 07, 2020 - Glycemic Short BSG Results (Last 24 hours): 09/06/20 09/06/20 09/07/20 16:24 20:24 02:13 Glucose POC Glucose 89 105 H 91 09/07/20 09/07/20 09/07/20 06:45 07:30 11:19 Glucose 82 POC Glucose 84 102 H OUTPATIENT ANTIDIABETIC REGIMEN: * Tresiba 90 units SC HS * Trulicity 0.75 SC weekly * Metformin XR 1000 mg PO BIDM * HbA1c: 5.4% (August 2020) ASSESSMENT: * BSGs so far this admission ranging 79-105 mg/dL * Patient received 40 units of Lantus last evening, no Novolog needed * ICD removal scheduled for tomorrow - NPO after midnight * Continues on empiric vancomycin (Zosyn discontinued) PLAN FOR INPATIENT GLYCEMIC CONTROL: * Hold outpatient oral diabetes medications * Basal insulin * Lantus scale HS to provide 30-50 units (see EHR for details) * Bolus insulin * NovoLog per scale ACHS or Q6hrs while NPO * Goal Range: Low 110 mg/dL - High 140 mg/dL * Correction Factor: 25 mg/dL/unit * Nutritional / Prandial insulin per carb ratio of 1 unit per 8 grams CHO consumed
--- NOTE | 2020-09-07 17:26 | Hospitalist Progress Note ---
Date of Service September 07, 2020 Assessment & Plan (1) Implantable cardioverter-defibrillator infection: -This is a 55 yo F with hx of HOCM/non sustained Vtach , Type 2 DM , GEORGE on CPAP -Patient presented to ER for purulent drainage at AICD insertion site/post procedure infection -pt has hx of HOCM , out pt Zio cardiac monitoring showed episodes of NSVT -AICD placed on 07/27/[address] Tomas EP Radiotelegrapher -pt had uneventful post procedure recovery , was discharged home next day had follow up eval with cardiology and incision site check on 08/20/20 incision wound appeared to be well healed -2 days back , pt noted a scab fell off from the incision site -with purulent. pt was asked to come to ER had no fever or chills , no pain or discomfort at the AICD insertion site blood culture no growth wound culture Staph aureus -sensitivity pending /appreciate input from card iology -scheduled to remove AICD on 09/08/20 cont Iv vancomycin , d/c zosyn [facility] ID consulted (2) GRETCHEN (acute kidney injury): -cr 1.3 today ,( baseline cr 1.1) cont IVF repeat lab in am - -lisinopril on hold -avoid NSAID (3) HOCM (hypertrophic obstructive cardiomyopathy): -Echo 02/2020: EF 60 to 64%, grade 1 diastolic dysfunction, asymmetric LVH involving the septum, maximum thickness 2.2 cm without obstruction -AICD was placed on 07/27/20 for evidence of non sustained vtach noted in Zio patch infected AICD will be removed tomorrow cont Abx as outlined above (4) NSVT (nonsustained ventricular tachycardia): -Continue metoprolol (5) DM type 2 (diabetes mellitus, type 2): -Hgb A1c 5.4 08/2020 -Given patient's complex home regimen, glycemic pharmacy consulted appreciate input (6) HTN (hypertension): -BP controlled, holding lisinopril as above -Continue metoprolol (7) GEORGE (obstructive sleep apnea): -CPAP as per home settings FULL CODE DISPOSITION : expected to be discharged home when medically stable (8) DVT prophylaxis: -SQ Lovenox Admission and Anticipated Discharge Date Admission Date: September 06, 2020 Subjective Follow up visit for infected AICD: pt reports feeling fine no fever or chills ( did not had any fever at home as well ) no pain or discomfort at left upper chest wall AICD site pt is comfortable no cough , no SOB understands that she has infection at AICD insertion pocket will have procedure tomorrow to remove AICD Review of Systems Review of Systems: All systems reviewed & are unremarkable except as noted in HPI & below Physical Exam Constitutional: WD/WN, vitals as above + obese Eyes: PERRL, conjunctivae normal, anicteric sclerae ENMT: external ear and nose normal, oropharynx normal Respiratory: normal respiratory effort, lungs clear to auscultation Cardiovascular: Rate/Rhythm: regular rate and regular rhythm Vessels: normal peripheral pulses Extremities: no edema Gastrointestinal (Abdomen): normal bowel sounds, soft, nontender, no hepatosplenomegaly Musculoskeletal: no cyanosis or clubbing, extremities motor strength 5/5 left upper chest wall AICD insertion site remains bandaged , no surrounding swelling , erythema or tenderness , no active drainage noted Skin: no rashes, warm and dry Neurologic: PERRL, EOMI, accommodation nl, no face palsy, no dysarthria Psychiatric: A+Ox3, euthymic affect Results & Data Results & Data ([facility]) Vital Signs (Past 12 Hours) Vital Signs Temp Pulse Pulse Resp BP Pulse Ox 09/07/20 16:33 60 09/07/20 15:12 37.0 C 74 18 116/63 98 09/07/20 12:06 36.5 C 81 16 122/71 98 09/07/20 08:13 36.8 C 76 18 109/62 99 09/07/20 07:20 67
[2020-09-07] MEDS: ROSUVASTATIN CALCIUM 20 MG TAB PO SCH (20:28)
[2020-09-07] MEDS: OXYBUTYNIN CHLORIDE XL 5 MG TABCR PO SCH (20:29)
[2020-09-07] MEDS: MULTIVITAMIN TAB PO SCH (20:29)
[2020-09-07] MEDS: PANTOprazole 40 MG TAB PO SCH (20:31)
[2020-09-07] MEDS: INSULIN GLARGINE SOLOSTAR 100 UNITS/ML 3 ML PEN SC SCH (20:33)
[2020-09-07] MEDS: VANCOMYCIN HCL 1,250 MG in SODIUM CHLORIDE 0.9% 250 ML IV SCH (21:11)
[2020-09-07] MEDS: ACETAMINOPHEN 325 MG TAB PO PRN (21:12)
[2020-09-08] MEDS ORDERED: MIDAZOLAM HCL 5 MG/ML 1 ML VIAL ONE (07:21)
[2020-09-08] MEDS ORDERED: fentaNYL citrate 100 MCG/2 ML VIAL ONE ×2 (07:21→09:27)
[2020-09-08] MEDS ORDERED: BACITRACIN INJ 50,000 UNIT VIAL ONE (07:26)
[2020-09-08] MEDS ORDERED: LIDOCAINE HCL 1% 20 ML VIAL ONE (07:26)
[2020-09-08] MEDS ORDERED: BUPIVACAINE 0.25% 30 ML VIAL ONE (07:26)
[2020-09-08] MEDS: INSULIN ASPART 100 UNITS/ML 3 ML PEN SC SCH ×4 (07:35→21:49)
[2020-09-08 08:07] LABS: Hemoglobin 12.6 g/dL (12.0-16.0); Mean Corpuscular Hemoglobin 28.9 pg (25-34); Mean Corpuscular Hgb Conc 32.3 g/dL (32-36); Mean Corpuscular Volume 89.4 fL (80-100); Mean Platelet Volume 10.5 fL (7.4-10.4); Platelet Count 285 K/uL (130-400); RDW Standard Deviation 46.4 fL (36.4-46.3); Red Blood Count 4.36 M/uL (4.2-5.4); White Blood Count 9.56 K/uL (4.8-10.8)
[2020-09-08 08:36] LABS: BUN Creatinine Ratio 11.6 (10-20); Calcium 9.5 mg/dl (8.5-10.1); Creatinine Clr Calc Pharmacy 61.8 ml/min; Est GFR (African American) 64.3; Est GFR (Non-African American) 55.4; Potassium 3.5 mmol/L (3.5-5.1)
--- NOTE | 2020-09-08 08:36 | History & Physical Bridge Note ---
Date of Service September 08, 2020 History & Physical Bridge Note I have examined the patient, reviewed the History & Physical and in the interval since the performance of the History & Physical I have noted the following changes of clinical significance: pt with ICD pocket infection for extraction
--- NOTE | 2020-09-08 08:36 | Pre Anesthesia Assessment ---
Date of Service September 08, 2020 Pre Sedation Assessment Vital Signs Temp Pulse Pulse Resp BP BP Pulse Ox 09/08/20 04:09 37.0 C 72 17 125/79 98 09/07/20 23:39 36.9 C 67 18 117/77 95 09/07/20 20:11 36.9 C 78 16 131/82 96 09/07/20 16:33 60 09/07/20 15:12 37.0 C 74 18 116/63 98 09/07/20 12:06 36.5 C 81 16 122/71 98 Cardiovascular RRR, no murmur, no edema Respiratory normal respiratory effort, lungs clear to auscultation Pre-Sedation Airway Assessment Smoking Status: Former smoker Hx Sleep Apnea: Yes (wears cpap at night) Short, Thick Neck: No Thyromental Distance: > or= 3.5 Finger Breadths Oral Cavity: + WNL Mallampati Class: III ASA: ASA3 NPO Status Date of Last Intake of Fluids: 09/07/20 Date of Last Intake of Solid Food: 09/07/20 Procedure Planning Contraindications for Sedation: none Current Medications Reviewed: Yes Notes The planned sedation has been discussed with the patient. Informed Consent was obtained. I have identified the patient, determined the appropriateness of sedation and have assessed the patient immediately prior to the procedure. All medicine(s) and interventions are by my order.
[2020-09-08] MEDS: METOPROLOL SUCC 25MG EXT REL TAB PO SCH ×2 (09:00→21:51)
[2020-09-08] MEDS ORDERED: MIDAZOLAM HCL 1 MG/ML 2ML VIAL ONE ×2 (09:27→09:48)
--- NOTE | 2020-09-08 10:11 | Post Anesthesia Assessment ---
Date of Service September 08, 2020 Post Sedation Assessment Vital Signs Temp Pulse Pulse Resp BP BP Pulse Ox 09/08/20 08:44 36.5 C 84 18 145/66 H 98 09/08/20 04:09 37.0 C 72 17 125/79 98 09/07/20 23:39 36.9 C 67 18 117/77 95 09/07/20 20:11 36.9 C 78 16 131/82 96 09/07/20 16:33 60 09/07/20 15:12 37.0 C 74 18 116/63 98 09/07/20 12:06 36.5 C 81 16 122/71 98 Recovery Score Activity: Moves 4 extremities Respiration: Deep Breath/Cough Circulation: +/-20% PreAnes Value Consciousness: Fully Awake Oxygen Saturation: > 92% On Room Air Discharge Sedation Level of Care: Fast Track Phase II Post Sedation Plan On clinical assessment, the patient appears to have tolerated the sedation without complications. Patient is recovering as anticipated. Patient will continue to be monitored by nursing and may be discharged when sedation discharge criteria are met per below protocol. Upon Completions of procedure up to 15 minutes continue every 5 minute vital sig ns and the P.A.R. score; then discharge to a Phase I or Fast Track to Phase II per the following guidelines: * Discharge Patient to appropriate Phase II area if PAR is 8 or greater or return to pre- procedure baseline. The post - procedure orders will be as directed. * If PAR score is less than 8 or not return to pre-procedure baseline then patient will follow Phase I monitoring till PAR is reached for Phase II. The Phase I may be done in procedure room or may call to secure a Phase I area. * If naloxone or flumazenil are used for reversal, hold in Phase I for continued monitoring from when last reversal dose was given for a minimum of 60 minutes or longer pending the nurse and/or physician discretion of patient condition before discharge to Phase II. Please call the Sedation Physician to re-evaluate and complete post-note for discharge to Phase II area. Do NOT discharge from procedure sedation or Phase 1 until post- sedation evaluation note is complete by procedure /sedation MD Sedation Discharge Instructions to be given to the patient at discharge to home.
--- NOTE | 2020-09-08 10:12 | Operative Report ---
Post Operative Report Pre & Post Diagnosis ICD pocket infection Operation Date: 09/08/20 08:00 <No data on this case meets the specified criteria> I identified the patient and participated in the time-out.: Yes Procedure Operation Date: 09/08/20 08:00 Actual Procedures p ICD/Pacemaker Removal - Jazmine Sadler DO Surgeon Jazmine Sadler, Residential Green Building Designer none Estimated Blood Loss 50 Findings Consistent with Post-Op Diagnosis Specimens none Description of Procedure see official report I attest to the content of the Intraoperative Record and any orders documented therein. Any exceptions are noted below.
--- NOTE | 2020-09-08 10:42 | Pharmacy Report ---
Pharmacy Glycemic Short Note 2 - Date of Service September 08, 2020 - Glycemic Short BSG Results (Last 24 hours): 09/07/20 09/07/20 09/07/20 11:19 16:17 20:06 Glucose POC Glucose 102 H 99 84 09/08/20 09/08/20 07:41 07:46 Glucose 77 POC Glucose 77 OUTPATIENT ANTIDIABETIC REGIMEN: * Tresiba 90 units SC HS * Trulicity 0.75 SC weekly * Metformin XR 1000 mg PO BIDM * HbA1c: 5.4% (August 2020) ASSESSMENT: * BC is now POD #0 s/p ICD removal this morning * BSGs well-controlled yesterday, 84, 102, 99, and 84 mg/dL * Patient received 30 units of Lantus and 6 units of prandial/correctional * Given tight BSG control yesterday - will loosen Novolog parameters * Fasting BSG of 77 mg/dL - will utilize Lantus scale this evening * Diet ordered with lunch PLAN FOR INPATIENT GLYCEMIC CONTROL: * Hold outpatient oral diabetes medications * Basal insulin * Lantus scale HS to provide 20-40 units (see EHR for details) * Bolus insulin - loosen * NovoLog per scale ACHS or Q6hrs while NPO * Goal Range: Low 110 mg/dL - High 140 mg/dL * Correction Factor: 35 mg/dL/unit * Nutritional / Prandial insulin per carb ratio of 1 unit per 12 grams CHO consumed PLAN FOR DISCHARGE: * TBD
[2020-09-08] MEDS ORDERED: VANCOMYCIN TROUGH ONE (13:30)
[2020-09-08] MEDS: ACETAMINOPHEN 325 MG TAB PO PRN (14:07)
[2020-09-08] MEDS: VANCOMYCIN HCL 1,250 MG in SODIUM CHLORIDE 0.9% 250 ML IV SCH (14:12)
--- NOTE | 2020-09-08 15:01 | Pharmacy Report ---
Pharmacy Abx Dose Short Note - Date of Service September 08, 2020 - Assessment & Plan Assessment 55 year old F receiving vancomycin for treatment of defibrillator pocket infection Day # 3 of antimicrobial therapy. Chest culture currently growing MSSA- aware of sensitivities to evaluate for change in therapy Plan Vancomycin * Trough level of 12.4 mcg/mL- previous dose was given late so this may be higher than true trough and vancomycin MIREYA=2 for staph that is growing, however must weigh that this is also prior to steady state and patient is at risk for accumulation (BMI >35 kg/m2). Therefore will adjust dose slightly less aggressive. * Change to 1250 mg IV every 14 hours * Goal trough level 15-20 mcg/mL * Trough currently not ordered, if vancomycin continued will likely order for 09/10 @ 0730 Pharmacy will continue to follow and will adjust dose/frequency as necessary. Thank you.
--- NOTE | 2020-09-08 15:39 | Hospitalist Progress Note ---
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 Complete 10-14 days of therapy from date of procedure. AICD can be reimplanted if blcx remain neg at 72h If blcx are + she would need an echo. Plan would vary if lead/valve endocarditis is present or not. She would need IV antibx at dc, LOT would depend on echo findings, clearance of bacteremia, etc Follow up deep wound cx collected on 09/08 Continue monitor closely (2) GRETCHEN (acute kidney injury): Creatinine increased to 1.3, ( baseline cr 1.1) Now back to normal 1.1 Continue to hold lisinopril, will resume in am Continue to avoid NSAID (3) HOCM (hypertrophic obstructive cardiomyopathy): Echo 02/2020: EF 60 to 64%, grade 1 diastolic dysfunction, asymmetric LVH involving the septum, maximum thickness 2.2 cm without obstruction AICD was placed on 07/27/20 for evidence of non sustained vtach noted in Zio patch Infected AICD removed today stable (4) NSVT (nonsustained ventricular tachycardia): Continue metoprolol (5) DM type 2 (diabetes mellitus, type 2): Hgb A1c 5.4 08/2020 Pharmacy on board for glycemic management stable (6) HTN (hypertension): BP controlled Continue metoprolol Will resume Lisinopril in am (7) GEORGE (obstructive sleep apnea): CPAP as per home settings FULL CODE DISPOSITION : expected to be discharged home when medically stable (8) DVT prophylaxis: SQ Lovenox on hold Admission and Anticipated Discharge Date Admission Date: September 06, 2020 Subjective Follow up visit for infected AICD Pt was seen and examined Lying in bed with no distress Pt said that she feels ok She said that she has some mild tenderness around the pacemaker incision area Denies any chest pain, palpitation, dizziness and SOB Review of Systems Review of Systems: All systems reviewed & are unremarkable except as noted in Subjective Physical Exam Physical Exam: General- No acute distress Head- atraumatic Eyes- PERRL, EOMI, ENT- oropharynx clear Neck- supple, no JVD Lungs- clear to auscultation Heart- regular rhythm; no murmur Abdomen- normal bowel sounds, soft, nontender Extremities- no calf tenderness Neuro- alert, oriented x 3; PERRL, EOMI; no facial palsy; no dysarthria Skin- warm & dry, dressing in left sided chest area Results & Data Results & Data ([facility]) Vital Signs (Past 12 Hours) Vital Signs Temp Pulse Pulse Resp BP BP Pulse Ox 09/08/20 12:35 36.6 C 90 16 134/85 96 09/08/20 12:05 36.6 C 84 18 129/60 98 09/08/20 11:35 36.8 C 85 18 123/80 98 09/08/20 11:20 36.5 C 75 18 124/63 96 09/08/20 11:00 74 09/08/20 10:35 74 18 127/77 92 09/08/20 10:20 72 18 140/92 95 09/08/20 08:44 36.5 C 84 18 145/66 H 98 09/08/20 04:09 37.0 C 72 17 125/79 98
[2020-09-08] MEDS ORDERED: VANCOMYCIN HCL 1,250 MG in SODIUM CHLORIDE 0.9% 250 ML IV SCH (16:00)
[2020-09-08] MEDS ORDERED: traMADol HCL 50 MG TABLET PO STA (16:39)
[2020-09-08] MEDS: ceFAZolin 2000MG 2,000 MG/15 ML SYR IV SCH ×2 (17:23→23:52)
[2020-09-08] MEDS: MULTIVITAMIN TAB PO SCH (18:55)
[2020-09-08] MEDS: ROSUVASTATIN CALCIUM 20 MG TAB PO SCH (18:55)
[2020-09-08] MEDS: OXYBUTYNIN CHLORIDE XL 5 MG TABCR PO SCH (18:55)
[2020-09-08] MEDS: INSULIN GLARGINE SOLOSTAR 100 UNITS/ML 3 ML PEN SC SCH (21:49)
[2020-09-08] MEDS: PANTOprazole 40 MG TAB PO SCH (21:50)
[2020-09-08] MEDS: traMADol HCL 50 MG TABLET PO PRN (21:53)
[2020-09-09] MEDS ORDERED: VANCOMYCIN HCL 1,250 MG in SODIUM CHLORIDE 0.9% 250 ML IV SCH (04:00)
[2020-09-09 07:48] LABS: Hematocrit (blood only) 37.3 % (37-47); Mean Corpuscular Hemoglobin 28.5 pg (25-34); Mean Corpuscular Hgb Conc 32.2 g/dL (32-36); Mean Corpuscular Volume 88.6 fL (80-100); Platelet Count 298 K/uL (130-400); RDW Standard Deviation 45.3 fL (36.4-46.3); Red Blood Count 4.21 M/uL (4.2-5.4); White Blood Count 15.13 K/uL (4.8-10.8)
[2020-09-09 07:49] LABS: Mean Platelet Volume 10.3 fL (7.4-10.4)
[2020-09-09 08:27] LABS: BUN Creatinine Ratio 13.7 (10-20); Calcium 9.2 mg/dl (8.5-10.1); Creatinine Clr Calc Pharmacy 63.1 ml/min; Est GFR (African American) 66.4; Est GFR (Non-African American) 57.3; Potassium 3.7 mmol/L (3.5-5.1)
[2020-09-09] MEDS: traMADol HCL 50 MG TABLET PO PRN ×3 (08:54→20:02)
[2020-09-09] MEDS: INSULIN ASPART 100 UNITS/ML 3 ML PEN SC SCH ×4 (09:10→21:40)
[2020-09-09] MEDS: ceFAZolin 2000MG 2,000 MG/15 ML SYR IV SCH ×2 (09:10→17:54)
[2020-09-09] MEDS: METOPROLOL SUCC 25MG EXT REL TAB PO SCH ×2 (09:10→20:04)
[2020-09-09] MEDS ORDERED: NURSING DECISION MEDICATION SCH (10:30)
--- NOTE | 2020-09-09 11:32 | Pharmacy Report ---
Pharmacy Glycemic Short Note 2 - Date of Service September 09, 2020 - Glycemic Short BSG Results (Last 24 hours): 09/08/20 09/08/20 09/09/20 16:35 21:04 07:07 Glucose POC Glucose 71 114 H 88 09/09/20 09/09/20 07:32 11:13 Glucose 79 POC Glucose 102 H OUTPATIENT ANTIDIABETIC REGIMEN: * Tresiba 90 units SC HS * Trulicity 0.75 SC weekly * Metformin XR 1000 mg PO BIDM * HbA1c: 5.4% (August 2020) ASSESSMENT: 09/09: * Patient received total of 0 units of insulin yesterday, no PO intake - BSGs on lower end of range. Had scale for lantus for last night, however refused by patient * Fasting BSG 88 mg/dL - will continue with lantus scale for HS, however will reduce significantly and have hold parameters if PO intake poor. Feel that BSGs will start to rise with no basal insulin given yesterday * Continue same CF/CR PLAN FOR INPATIENT GLYCEMIC CONTROL: * Hold outpatient oral diabetes medications * Basal insulin * Lantus scale HS to provide 0-15 units (see EHR for details) * Bolus insulin * NovoLog per scale ACHS or Q6hrs while NPO * Goal Range: Low 110 mg/dL - High 140 mg/dL * Correction Factor: 35 mg/dL/unit * Nutritional / Prandial insulin per carb ratio of 1 unit per 12 grams CHO consumed PLAN FOR DISCHARGE: * A1c - 5.4% / would be reasonable to continue home diabetic regimen as long as patient not reporting frequent hypoglycemia and PO intake improves on discharge * Insulin needs significantly reduced on admission from home regimen, will continue to follow. Would consider a reduced insulin regimen if PO intake remains poor
--- NOTE | 2020-09-09 12:00 | Cardiology Progress Note ---
Date of Service September 09, 2020 Assessment & Plan (1) Infection of pacemaker pocket: 55-year-old female who underwent dual-chamber defibrillator implantation, prophylactic history of hypertrophic cardiomyopathy, high risk. Admitted with wound dehiscence. Blood cultures without growth this morning. Wound culture growing staph aureus sensitivity pending Patient nontoxic and tolerating antibiotics. d Plan: Status post successful device extraction. No acute complaints and blood cultures returning to date negative. Will likely be able to be discharged on oral antibiotics (2) ICD (implantable cardioverter-defibrillator), dual, in situ: Now extracted due to pacer pocket infection. LifeVest fitted. Once surgical site healed will ultimately require reimplantation (3) HOCM (hypertrophic obstructive cardiomyopathy): Admission and Anticipated Discharge Date Admission Date: September 06, 2020 Subjective Patient seen and examined, chart, medications, telemetry reviewed. Notes mild discomfort at surgical incision site. Being fitted for LifeVest today. No fevers or chills. No chest pains other than as described. No orthopnea or worsening peripheral edema. Telemetry without arrhythmias Blood cultures to date without growth. Physical Exam Constitutional: WD/WN, vitals as above + obese; no acute distress Eyes: PERRL, conjunctivae normal, anicteric sclerae ENMT: external ear and nose normal, oropharynx normal Neck: trachea midline, no thyromegaly Respiratory: normal respiratory effort, lungs clear to auscultation Cardiovascular: Rate/Rhythm: regular rate and regular rhythm Heart Sounds: normal S1 and normal S2; no gallop and no murmur Palpation: normal PMI Vessels: normal carotid upstroke and radial pulses present; no JVD and no carotid bruit Extremities: no edema Chest (Breasts): Additional Comments: Surgical site bandaged without significant drainage Gastrointestinal (Abdomen): normal bowel sounds, soft, nontender, no hepatosplenomegaly Musculoskeletal: no cyanosis or clubbing, extremities motor strength 5/5 Skin: no rashes, warm and dry Neurologic: PERRL, EOMI, accommodation nl, no face palsy, no dysarthria Psychiatric: A+Ox3, euthymic affect Results & Data ([facility]) Vital Signs (Past 12 Hours) Vital Signs Temp Pulse Pulse Resp BP BP Pulse Ox 09/09/20 07:58 37.3 C 88 18 121/84 94 09/09/20 03:24 36.7 C 86 16 121/78 97 09/09/20 00:09 79
[2020-09-09] MEDS: ACETAMINOPHEN 325 MG TAB PO PRN (12:03)
[2020-09-09] MEDS ORDERED: MoRPHine SULFATE 2 MG/ML CARP ONE (13:45)
[2020-09-09] MEDS ORDERED: MoRPHine SULFATE 2 MG/ML CARP IV STA (13:49)
--- NOTE | 2020-09-09 14:13 | Surgery Consultation ---
Date of Consultation September 09, 2020 Assessment & Plan (1) Infection of pacemaker pocket: pt is a 55 year-old female who had removed infected AICD yesterday, nurse could not put the packing, IMP: infected wound on left upper chest wall, the suture catch packing. I removed the one suture, then put out packing freely, the nurse re-packing the wound, sign off today, please call with questions, thanks, Present on Admission?: Yes Supervising Physician Co-Signing Physician Notes HISTORY: Record reviewed. Patient interviewed and examined in her room around 12:30. Care coordinated with LAKESHA Higgins. Please refer to her documentation for complete history. Briefly, 55 YO female with history of hypertrophic obstructive cardiomyopathy, nonsustained VT, DM, and other problems as noted. AICD placed by Dr. Sadler 07/27/20. Yesterday, patient noted purulent and bloody drainage from incision. No fever, chills, sweats. Blood sugars well-controlled at home. EXAM: General- no distress Lungs- clear to auscultation; no respiratory distress Cardiovascular- RRR; no JVD; no pretibial edema Chest- AICD site left upper chest; incision open with surrounding erythema Abdomen- + bowel sounds, soft, nontender Extremities- no cyanosis; no calf tenderness Neuro- alert, oriented Skin- warm & dry DATA: WBC 13,800. K 3.4. Random glucose 79. Other lab studies as noted. ASSESSMENT AND PLAN: INFECTED AICD SITE Does not appear to be septic. Blood and wound cultures obtained. Empiric Rx with vancomycin and piperacillin / tazobactam pending micro data. Check baseline ESR and CRP. HYPERTROPHIC CARDIOMYOPATHY / NONSUSTAINED VT Management per Cardiology. DM TYPE 2 Well-controlled at home. Follow and titrate therapy. HYPOKALEMIA K 3.4. Not on any diuretics. Mg++ OK. Replace. Follow. Please refer to GET Hurley's documentation for discussion of other issues. History of Present Illness Attending Physician: Alaina Nicolas MD History of Present Illness Chief Complaint: Postop AICD wound infection Primary Care Provider: Mar Devlin MD 55-year-old old female with PMH DM type II, GEORGE on CPAP, NSVT, hypertrophic cardiomyopathy, AICD placement on 07/27/2020, and other problems listed below who presents the ED for evaluation of postoperative AICD wound infection. Patient underwent AICD placement on 07/27/2020 after outpatient monitor showed episodes of nonsustained V. tach. Patient carries a history of hypertrophic cardiomyopathy. Patient reports she has been doing well since her procedure. Yesterday morning, when she removed the dressing, she reports the the scab came off and there was some purulent drainage. Patient sent a photo to Dr. Sadler who instructed the patient come to the ED for further evaluation. Patient denies fevers and chills. No chest pain, shortness of breath, palpitations. She denies lightheadedness, dizziness, diaphoresis, syncopal events. No abdominal pain, nausea, vomiting, diarrhea. She denies urinary symptoms. In the ED, patient is hemodynamically stable. WBC 13.8K. Patient received IV ceftriaxone. I ( Sara Pringle MD ) got a call consult for suture catch packing dressing, pt had remove infected AICD yesterday, the nurse try to change packing, she could not put the packing out which was suture catch the packing, Allergies Allergy/AdvReac Type Severity Reaction Status Date / Time Sulfa (Sulfonamide Allergy Rash Verified 07/27/20 07:24 Antibiotics) Home Medications Medication Instructions Recorded Confirmed Type Excedrin Migraine 2 tab PO Q8 PRN 07/27/20 09/06/20 History Tresiba FlexTouch U-200 90 unit SUBCUT HS 07/27/20 09/06/20 History Trulicity 0.75 mg SUBCUT MO 07/27/20 09/06/20 History lisinopril 5 mg PO DAILY@189907/27/20 09/06/20 History metformin [Glucophage XR] 1,000 mg PO BID 07/27/20 09/06/20 History metoprolol succinate [Toprol XL] 12.5 mg PO BID 07/27/20 09/06/20 Hi story multivitamin 1 tab PO DAILY@189907/27/20 09/06/20 History omeprazole 20 mg HS 07/27/20 09/06/20 History oxybutynin chloride [Ditropan XL] 10 mg PO DAILY@189907/27/20 09/06/20 History rosuvastatin [Crestor] 40 mg PO DAILY@189907/27/20 09/06/20 History albuterol sulfate 2 puff INHALATION Q4H PRN 09/06/20 09/06/20 History empagliflozin [Jardiance] 10 mg PO DAILY@189909/06/20 09/06/20 History Past Med/Surg History Medical History DM type 2 (diabetes mellitus, type 2) Family history of sudden cardiac (SCD) GERD (gastroesophageal reflux disease) HOCM (hypertrophic obstructive cardiomyopathy) HTN (hypertension) Hyperlipemia NSVT (nonsustained ventricular tachycardia) GEORGE (obstructive sleep apnea) Sinus bradycardia Surgical History H/O: hysterectomy History of implantable cardioverter-defibrillator (ICD) placement Family History Father Sudden cardiac Brother Sudden cardiac Social History Smoking Status: Former smoker Tobacco Type: Cigarettes Hx Alcohol Use: No Hx Substance Use: No Preferred Language: Emirati Communication Ability: Effective Laboratory Specialist Required: No Beliefs That Will Affect Care: None Current Living Situation: Spouse Other Information That Helps Us Care for You: No Feels Safe at Home: Yes Safety Concerns: Feels Safe At This Time Assistive Devices: CPAP and Glasses Review of Systems Review of Systems: ROS per HPI, all other systems reviewed and negative Allergies Allergy/AdvReac Type Severity Reaction Status Date / Time Sulfa (Sulfonamide Allergy Rash Verified 07/27/20 07:24 Antibiotics) Home Medications Medication Instructions Recorded Confirmed Type Excedrin Migraine 2 tab PO Q8 PRN 07/27/20 09/06/20 History Tresiba FlexTouch U-200 90 unit SUBCUT HS 07/27/20 09/06/20 History Trulicity 0.75 mg SUBCUT MO 07/27/20 09/06/20 History lisinopril 5 mg PO DAILY@189907/27/20 09/06/20 History metformin [Glucophage XR] 1,000 mg PO BID 07/27/20 09/06/20 History metoprolol succinate [Toprol XL] 12.5 mg PO BID 07/27/20 09/06/20 History multivitamin 1 tab PO DAILY@189907/27/20 09/06/20 History omeprazole 20 mg HS 07/27/20 09/06/20 History oxybutynin chloride [Ditropan XL] 10 mg PO DAILY@189907/27/20 09/06/20 History rosuvastatin [Crestor] 40 mg PO DAILY@189907/27/20 09/06/20 History albuterol sulfate 2 puff INHALATION Q4H PRN 09/06/20 09/06/20 History empagliflozin [Jardiance] 10 mg PO DAILY@189909/06/20 09/06/20 History Patient History Medical History DM type 2 (diabetes mellitus, type 2) Family history of sudden cardiac (SCD) GERD (gastroesophageal reflux disease) HOCM (hypertrophic obstructive cardiomyopathy) HTN (hypertension) Hyperlipemia NSVT (nonsustained ventricular tachycardia) GEORGE (obstructive sleep apnea) Sinus bradycardia Surgical History H/O: hysterectomy History of implantable cardioverter-defibrillator (ICD) placement Family History Father Sudden cardiac Brother Sudden cardiac Social History Smoking Status: Former smoker Tobacco Type: Cigarettes Hx Alcohol Use: No Hx Substance Use: No Preferred Language: Emir[place] Communication Ability: Effective Laboratory Specialist Required: No Beliefs That Will Affect Care: None Current Living Situation: Spouse Other Information That Helps Us Care for You: No Feels Safe at Home: Yes Safety Concerns: Feels Safe At This Time Assistive Devices: Glasses Physical Exam Constitutional: WD/WN, vitals as above well developed and well nourished Eyes: PERRL, conjunctivae normal, anicteric sclerae ENMT: external ear and nose normal, oropharynx normal Neck: trachea midline, no thyromegaly Respiratory: normal respiratory effort, lungs clear to auscultation Chest (Breasts): Additional Comments: packing wound on left upper chest wall, could not put out the packing, Neurologic: awake Psychiatric: Orientation: alert and oriented x 3 Results & Data ([facility]) Vital Signs (Past 12 Hours) Vital Signs Temp Pulse Resp BP BP Pulse Ox 09/09/20 12:00 37.2 C 97 H 18 133/84 94 09/09/20 07:58 37.3 C 88 18 121/84 94 09/09/20 03:24 36.7 C 86 16 121/78 97 Laboratory Results Abnormal lab results 09/08/20 09/09/20 09/09/20 Range/Units 21:04 07:32 11:13 WBC 15.13 H (4.8-10.8) K/uL POC Glucose 114 H 102 H (70-99) mg/dl
--- NOTE | 2020-09-09 14:38 | Communication Note ---
Date of Service: September 09, 2020 Asked to be present for wound packing change. Attempts to remove wound packing noted entanglement in suture line. Lower suture removed but packing still entrapped. Surgical consultation placed for further assessment
--- NOTE | 2020-09-09 19:52 | Hospitalist Progress Note ---
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 Complete 10-14 days of therapy from date of procedure. AICD can be reimplanted if blcx remain neg at 72h If blcx are + she would need an echo. Plan would vary if lead/valve endocarditis is present or not. She would need IV antibx at dc, LOT would depend on echo findings, clearance of bacteremia, etc Deep wound cx collected on 09/08 grew staph species, will follow sensitivity Will discuss with ID about antibiotic on discharge LifeVest fitted today Continue monitor closely (2) GRETCHEN (acute kidney injury): Creatinine increased to 1.3, ( baseline cr 1.1) Now back to normal 1.1 Continue to hold lisinopril, will resume in am Continue to avoid NSAID (3) HOCM (hypertrophic obstructive cardiomyopathy): Echo 02/2020: EF 60 to 64%, grade 1 diastolic dysfunction, asymmetric LVH involving the septum, maximum thickness 2.2 cm without obstruction AICD was placed on 07/27/20 for evidence of non sustained vtach noted in Zio patch Infected AICD removed today stable (4) NSVT (nonsustained ventricular tachycardia): Continue metoprolol (5) DM type 2 (diabetes mellitus, type 2): Hgb A1c 5.4 08/2020 Pharmacy on board for glycemic management stable (6) HTN (hypertension): BP controlled Continue metoprolol Will resume Lisinopril in am (7) GEORGE (obstructive sleep apnea): CPAP as per home settings FULL CODE DISPOSITION : expected to be discharged home when medically stable (8) DVT prophylaxis: SQ Lovenox on hold, will resume in am Admission and Anticipated Discharge Date Admission Date: September 06, 2020 Subjective Follow up for AICD removal Pt was seen and examined Lying in bed with no distress Pt said that she is alittle bit tender in the left chest area Denies any chest pain, palpitation, dizziness and SOB Physical Exam Physical Exam: General- No acute distress Head- atraumatic Eyes- PERRL, EOMI, ENT- oropharynx clear Neck- supple, no JVD Lungs- clear to auscultation Heart- regular rhythm; no murmur Abdomen- normal bowel sounds, soft, nontender Extremities- no calf tenderness Neuro- alert, oriented x 3; PERRL, EOMI; no facial palsy; no dysarthria Skin- warm & dry, dressing in left sided chest area Results & Data Results & Data ([facility]) Vital Signs (Past 12 Hours) Vital Signs Temp Pulse Resp BP Pulse Ox 09/09/20 15:43 37.0 C 82 16 99/65 L 92 09/09/20 12:00 37.2 C 97 H 18 133/84 94 09/09/20 07:58 37.3 C 88 18 121/84 94
[2020-09-09] MEDS: MULTIVITAMIN TAB PO SCH (20:03)
[2020-09-09] MEDS: PANTOprazole 40 MG TAB PO SCH (20:04)
[2020-09-09] MEDS: ROSUVASTATIN CALCIUM 20 MG TAB PO SCH (20:04)
[2020-09-09] MEDS: OXYBUTYNIN CHLORIDE XL 5 MG TABCR PO SCH (20:04)
[2020-09-09] MEDS: INSULIN GLARGINE SOLOSTAR 100 UNITS/ML 3 ML PEN SC SCH (21:39)
[2020-09-10] MEDS: ceFAZolin 2000MG 2,000 MG/15 ML SYR IV SCH ×2 (00:39→08:42)
[2020-09-10 08:01] LABS: Hematocrit (blood only) 37.9 % (37-47); Hemoglobin 12.1 g/dL (12.0-16.0); Mean Corpuscular Hemoglobin 28.3 pg (25-34); Mean Corpuscular Hgb Conc 31.9 g/dL (32-36); Mean Corpuscular Volume 88.8 fL (80-100); Mean Platelet Volume 10.8 fL (7.4-10.4); Platelet Count 311 K/uL (130-400); RDW Coefficient of Variation 14.1 % (11.5-14.5); RDW Standard Deviation 45.3 fL (36.4-46.3); Red Blood Count 4.27 M/uL (4.2-5.4); White Blood Count 11.26 K/uL (4.8-10.8)
--- NOTE | 2020-09-10 08:38 | Pre Anesthesia Assessment ---
Date of Service September 10, 2020 Pre Sedation Assessment Vital Signs Temp Pulse Resp BP BP Pulse Ox 09/10/20 07:58 37.0 C 78 19 113/74 95 09/10/20 03:14 36.8 C 79 16 100/64 97 09/09/20 23:28 36.8 C 74 16 102/67 97 09/09/20 20:00 37.1 C 80 17 114/74 93 09/09/20 15:43 37.0 C 82 16 99/65 L 92 09/09/20 12:00 37.2 C 97 H 18 133/84 94 Cardiovascular RRR, no murmur, no edema Respiratory normal respiratory effort, lungs clear to auscultation Pre-Sedation Airway Assessment Smoking Status: Former smoker Hx Sleep Apnea: Yes (wears cpap at night) Short, Thick Neck: No Thyromental Distance: > or= 3.5 Finger Breadths Oral Cavity: + WNL Mallampati Class: III ASA: ASA3 NPO Status Date of Last Intake of Fluids: 09/07/20 Date of Last Intake of Solid Food: 09/07/20 Procedure Planning Contraindications for Sedation: none Current Medications Reviewed: Yes Notes The planned sedation has been discussed with the patient. Informed Consent was obtained. I have identified the patient, determined the appropriateness of sedation and have assessed the patient immediately prior to the procedure. All medicine(s) and interventions are by my order.
[2020-09-10] MEDS: METOPROLOL SUCC 25MG EXT REL TAB PO SCH (08:43)
[2020-09-10] MEDS: INSULIN ASPART 100 UNITS/ML 3 ML PEN SC SCH ×3 (08:43→17:39)
[2020-09-10] MEDS: traMADol HCL 50 MG TABLET PO PRN ×2 (09:27→18:00)
--- NOTE | 2020-09-10 10:58 | Cardiology Progress Note ---
Date of Service September 10, 2020 Assessment & Plan (1) Infection of pacemaker pocket: 55-year-old female who underwent dual-chamber defibrillator implantation, prophylactic history of hypertrophic cardiomyopathy, high risk. Admitted with wound dehiscence. Blood cultures without growth this morning. Wound culture growing staph aureus sensitivity pending Patient nontoxic and tolerating antibiotics. Wound being packed with plan healing via secondary intention Plan: Status post successful device extraction. No acute complaints and blood cultures returning to date negative. Will likely be able to be discharged on oral antibiotics Disposition will be dependent on arranging home health follow-up on discharge (2) ICD (implantable cardioverter-defibrillator), dual, in situ: Now extracted due to pacer pocket infection. LifeVest fitted. Once surgical site healed will ultimately require reimplantation (3) HOCM (hypertrophic obstructive cardiomyopathy): Admission and Anticipated Discharge Date Admission Date: September 06, 2020 Subjective Patient was seen and examined, chart, medications, telemetry reviewed. No arrhythmias of significance observed overnight. More comfortable than yesterday left shoulder mildly sore. Wound packing and dressing change this morning Physical Exam Constitutional: WD/WN, vitals as above + obese; no acute distress Eyes: PERRL, conjunctivae normal, anicteric sclerae ENMT: Mallampati Class: III Neck: trachea midline, no thyromegaly Respiratory: normal respiratory effort, lungs clear to auscultation Cardiovascular: RRR, no murmur, no edema Rate/Rhythm: regular rate and regular rhythm Heart Sounds: normal S1 and normal S2; no gallop and no murmur Palpation: normal PMI Vessels: normal carotid upstroke and radial pulses present; no JVD and no carotid bruit Extremities: no edema Chest (Breasts): Chest: + pacemaker (Pacemaker defibrillator incision, open wound without surrounding erythema ) Gastrointestinal (Abdomen): normal bowel sounds, soft, nontender, no hepatosplenomegaly Musculoskeletal: no cyanosis or clubbing, extremities motor strength 5/5 Skin: no rashes, warm and dry Neurologic: PERRL, EOMI, accommodation nl, no face palsy, no dysarthria Psychiatric: A+Ox3, euthymic affect Results & Data ([facility]) Vital Signs (Past 12 Hours) Vital Signs Temp Pulse Resp BP Pulse Ox 09/10/20 07:58 37.0 C 78 19 113/74 95 09/10/20 03:14 36.8 C 79 16 100/64 97 09/09/20 23:28 36.8 C 74 16 102/67 97 Laboratory Results Laboratory Results - last 24 hr 09/09/20 09/09/20 09/10/20 11:13 20:57 07:06 WBC 11.26 H RBC 4.27 Hgb 12.1 Hct 37.9 MCV 88.8 MCH 28.3 MCHC 31.9 L RDW Std Deviation 45.3 RDW Coeff of Dong 14.1 Plt Count 311 MPV 10.8 H POC Glucose 102 H 150 H 09/10/20 07:13 WBC RBC Hgb Hct MCV MCH MCHC RDW Std Deviation RDW Coeff of Dong Plt Count MPV POC Glucose 78
--- NOTE | 2020-09-10 16:17 | Hospitalist Progress Note ---
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 Complete 10-14 days of therapy from date of procedure. AICD can be reimplanted if blcx remain neg at 72h If blcx are + she would need an echo. Plan would vary if lead/valve endocarditis is present or not. She would need IV antibx at dc, LOT would depend on echo findings, clearance of bacteremia, etc Deep wound cx collected on 09/08 grew staph aureus, sensitivity pending I spoke to microbiology lab about her wound cx from 09/08, they had to re-run the sensitivity again as per microbiologist Pt rather to go home instead to spend another night until the sensitivity result I discussed with ID C that said that if cx is MSSA to do PO Cephalexin, but if the cx grew MRSA that we will cover it with PO abx ( either Doxy, batrim or Clinda Pt agrees to go home with the Cephalexin as per ID recommendation, but if cx grew MRSA that we will call her tomorrow to change it with either doxy, Bactrim or Clindamycin Continue daily wound care Follow up with cardiology in 1 week (2) GRETCHEN (acute kidney injury): Creatinine increased to 1.3, ( baseline cr 1.1) Now back to normal 1.1 Continue to hold lisinopril, will resume in am Continue to avoid NSAID (3) HOCM (hypertrophic obstructive cardiomyopathy): Echo 02/2020: EF 60 to 64%, grade 1 diastolic dysfunction, asymmetric LVH involving the septum, maximum thickness 2.2 cm without obstruction AICD was placed on 07/27/20 for evidence of non sustained vtach noted in Zio patch Infected AICD s/p removal on 09/08 Continue to wear LifeVest for now stable (4) NSVT (nonsustained ventricular tachycardia): Continue metoprolol (5) DM type 2 (diabetes mellitus, type 2): Hgb A1c 5.4 08/2020 Pharmacy on board for glycemic management stable (6) HTN (hypertension): BP controlled Continue metoprolol Will resume Lisinopril on discharge (7) GEORGE (obstructive sleep apnea): CPAP as per home settings FULL CODE DISPOSITION discharge home today (8) DVT prophylaxis: SQ Lovenox on hold, will resume in am Admission and Anticipated Discharge Date Admission Date: September 06, 2020 Subjective Follow up for the infected AICD Pt was seen and examined Lying in bed with no distress Pt said that her left incision pain is minimal She said that she feels fine She wants to go home today I spoke to microbiology lab about her wound cx from 09/08, they had to re-run the sensitivity again as per microbiologist Pt rather to go home instead to spend another night until the sensitivity result I spoke to ID C that said that even if the cx grew MRSA that we will cover it with PO abx Pt agrees to go home with the Cephalexin as per ID recommendation, but if cx grew MRSA that we will call her tomorrow to change it with doxy, Bactrim or Clidamycin Denies any chest pain, palpitation, dizziness and SOB Physical Exam Physical Exam: General- No acute distress Head- atraumatic Eyes- PERRL, EOMI, ENT- oropharynx clear Neck- supple, no JVD Lungs- clear to auscultation Heart- regular rhythm; no murmur Abdomen- normal bowel sounds, soft, nontender Extremities- no calf tenderness Neuro- alert, oriented x 3; PERRL, EOMI; no facial palsy; no dysarthria Skin- warm & dry, dressing in left sided chest area Results & Data Results & Data ([facility]) Vital Signs (Past 12 Hours) Vital Signs Temp Pulse Pulse Resp BP BP Pulse Ox 09/10/20 15:40 37.0 C 74 18 107/66 95 09/10/20 12:33 37.2 C 87 19 116/83 96 09/10/20 09:00 67 09/10/20 07:58 37.0 C 78 19 113/74 95
[2020-09-10] MEDS ORDERED: cephALEXin 500 MG CAP PO SCH ×2 (17:00→21:00)
--- NOTE | 2020-09-11 00:26 | Discharge Summary ---
Date of Service September 10, 2020 Admission HPI Per Admitting Provider 55-year-old old female with PMH DM type II, GEORGE on CPAP, NSVT, hypertrophic cardiomyopathy, AICD placement on 07/27/2020, and other problems listed below who presents the ED for evaluation of postoperative AICD wound infection. Patient underwent AICD placement on 07/27/2020 after outpatient monitor showed episodes of nonsustained V. tach. Patient carries a history of hypertrophic cardiomyopathy. Patient reports she has been doing well since her procedure. Yesterday morning, when she removed the dressing, she reports the the scab came off and there was some purulent drainage. Patient sent a photo to Dr. Sadler who instructed the patient come to the ED for further evaluation. Patient denies fevers and chills. No chest pain, shortness of breath, palpitations. She denies lightheadedness, dizziness, diaphoresis, syncopal events. No abdominal pain, nausea, vomiting, diarrhea. She denies urinary symptoms. In the ED, patient is hemodynamically stable. WBC 13.8K. Patient received IV ceftriaxone. Admission Exam Per Admitting Provider Constitutional: WD/WN, vitals as above + obese Eyes: PERRL, conjunctivae normal, anicteric sclerae ENMT: external ear and nose normal, oropharynx normal Respiratory: normal respiratory effort, lungs clear to auscultation Cardiovascular: regular rate and regular rhythm Vessels: normal peripheral pulses Extremities: no edema Chest (Breasts): Additional Comments: Left chest AICD insertion site partially dehisced with a small amount of purulent drainage and surrounding erythema Gastrointestinal (Abdomen): normal bowel sounds, soft, nontender, no hepatosplenomegaly Musculoskeletal: no cyanosis or clubbing, extremities motor strength 5/5 Skin: no rashes, warm and dry Neurologic: PERRL, EOMI, accommodation nl, no face palsy, no dysarthria Psychiatric: A+Ox3, euthymic affect Principal Diagnosis Implantable cardioverter-defibrillator infection: GRETCHEN (acute kidney injury): HOCM (hypertrophic obstructive cardiomyopathy): NSVT (nonsustained ventricular tachycardia): DM type 2 (diabetes mellitus, type 2): HTN (hypertension): GEORGE (obstructive sleep apnea): Discharge Exam General- No acute distress Head- atraumatic Eyes- PERRL, EOMI, ENT- oropharynx clear Neck- supple, no JVD Lungs- clear to auscultation Heart- regular rhythm; no murmur Abdomen- normal bowel sounds, soft, nontender Extremities- no calf tenderness Neuro- alert, oriented x 3; PERRL, EOMI; no facial palsy; no dysarthria Skin- warm & dry, dressing in left sided chest area Discharge Data Allergies Allergy/AdvReac Type Severity Reaction Status Date / Time Sulfa (Sulfonamide Allergy Rash Verified 07/27/20 07:24 Antibiotics) Consultations 09/06/20 11:20 ED Decision to Admit Stat 09/06/20 12:40 Consult Cardiology Routine Consult Cardiology Routine 09/07/20 11:20 Consult Infectious Diseases Routine 09/08/20 10:27 Consult Case Management - Discharge Planning Routine 09/09/20 13:56 Consult General Surgery Routine Procedures Performed Operation Date: 09/08/20 08:00 Actual Procedures p ICD Removal - Jazmine Sadler, Ordered Studies 09/08/20 06:30 CL Cath Imgs for PACS use only Routine Hospital Course (1) Implantable cardioverter-defibrillator infection: Presented on admission for purulent drainage at AICD insertion site/post procedure infection AICD placed on 07/27/[address] 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 Complete 10-14 days of therapy from date of procedure. AICD can be reimplanted if blcx remain neg at 72h If blcx are + she would need an echo. Plan would vary if lead/valve endocarditis is present or not. She would need IV antibx at dc, LOT would depend on echo findings, clearance of bacteremia, etc Deep wound cx collected on 09/08 grew staph aureus, sensitivity pending I spoke to microbiology lab about her wound cx from 09/08, they had to re-run the sensitivity again as per microbiologist Pt rather to go home instead to spend another night until the sensitivity result I discussed with ID C that said that if cx is MSSA to do PO Cephalexin, but if the cx grew MRSA that we will cover it with PO abx ( either Doxy, batrim or Clinda Pt agrees to go home with the Cephalexin as per ID recommendation, but if cx grew MRSA that we will call her tomorrow to change it with either doxy, Bactrim or Clindamycin Continue daily wound care Follow up with cardiology in 1 week (2) GRETCHEN (acute kidney injury): Creatinine increased to 1.3, ( baseline cr 1.1) Now back to normal 1.1 Continue to hold lisinopril, will resume in am Continue to avoid NSAID (3) HOCM (hypertrophic obstructive cardiomyopathy): Echo 02/2020: EF 60 to 64%, grade 1 diastolic dysfunction, asymmetric LVH involving the septum, maximum thickness 2.2 cm without obstruction AICD was placed on 07/27/20 for evidence of non sustained vtach noted in Zio patch Infected AICD s/p removal on 09/08 Continue to wear LifeVest for now stable (4) NSVT (nonsustained ventricular tachycardia): Continue metoprolol (5) DM type 2 (diabetes mellitus, type 2): Hgb A1c 5.4 08/2020 Pharmacy on board for glycemic management stable (6) HTN (hypertension): BP controlled Continue metoprolol Will resume Lisinopril on discharge (7) GEORGE (obstructive sleep apnea): CPAP as per home settings FULL CODE DISPOSITION discharge home today (8) DVT prophylaxis: SQ Lovenox on hold, will resume in am Total Time Total Time Spent Total Time Spent (In Minutes): 35 minutes Total Time Includes: Examination of the Patient, Discharge Planning, Medication Reconciliation, Communication With Other Providers and Other Discharge Plan Discharge Items Patient Disposition: Home - Home Health Services Reason For Visit: INFECTED ACID Discharge Diagnosis: Implantable cardioverter-defibrillator infection: GRETCHEN (acute kidney injury): HOCM (hypertrophic obstructive cardiomyopathy): NSVT (nonsustained ventricular tachycardia): DM type 2 (diabetes mellitus, type 2): HTN (hypertension): GEORGE (obstructive sleep apnea): Activity: As commented below Non-emergency contact: Primary Care Provider Call non-emergency contact if: you have any medication questions, your temperature is above 101, your wound has increased redness, your wound has increased drainage and your wound pain has increased Follow-up/Referrals: Mar Zuluaag MD [Primary Care Provider] - 09/14/20 12:00 pm (Date & Time 09/14/2020 12:00 PM Provider Checo Perez MD Department Internal [facility] ) Diet: Carb Consistent or DM2 Addtl Attending Provider Instructions: Follow up with your primary care provider Dr. Perez(Dr Bennett Devlin's colleague) on 09/14/2020 12:00 PM follow up with cardiology (Dr. Sadler office will call you for the appintment) Complete the course of the antibiotic ( Will call you in the morning if culture indicates to change the antibiotic according to the sensitivity) Continue daily wound care Continue to wear the LifeVest Check BMP in 1 week to monitor your renal function No heavy lifting over 10 pounds for 2 weeks No submerging incisions underwater for 2 weeks (no swimming, bathing, hot tubs) but you may shower and gently clean the incisions with soap and water and pat dry. Continue daily wound care Walking and light activities encouraged daily to prevent blood clots from forming Seek medical attention if your wound area become red, swelling, tenderness and develop any fever Pending Studies at Discharge: Yes Studies:: wound sensitivity Stand-Alone Forms: My [facility] Green Is Good, Smoking Cessation Medications and DC Order Prescriptions: New cephalexin 500 mg Capsule 500 mg PO BID 10 Days Qty: 20 RF: 0 tramadol 50 mg Tablet 50 mg PO Q12H PRN (Reason: pain) Qty: 10 RF: 0 Continued multivitamin Tablet 1 tab PO DAILY@1900 RF: 0 oxybutynin chloride [Ditropan XL] 10 mg Tablet Extended Release 24hr 10 mg PO DAILY@1900 RF: 0 omeprazole 20 mg Capsule,Delayed Release(Dr/Ec) 20 mg HS RF: 0 lisinopril 5 mg Tablet 5 mg PO DAILY@1900 RF: 0 metoprolol succinate [Toprol XL] 25 mg Tablet Extended Release 24 Hr 12.5 mg PO BID RF: 0 metformin [Glucophage XR] 500 mg Tablet Extended Release 24 Hr 1,000 mg PO BID RF: 0 Excedrin Migraine 250-250-65 mg Tablet 2 tab PO Q8 PRN (Reason: Headache) RF: 0 rosuvastatin [Crestor] 40 mg Tablet 40 mg PO DAILY@1900 RF: 0 Tresiba FlexTouch U-200 200 unit/mL (3 mL) Insulin Pen 90 unit SUBCUT HS RF: 0 Trulicity 0.75 mg/0.5 mL Pen Injector 0.75 mg SUBCUT MO RF: 0 albuterol sulfate 90 mcg/actuation HFA aerosol inhaler 2 puff INHALATION Q4H PRN (Reason: Shortness Of Breath) RF: 0 Jardiance 10 mg tablet 10 mg PO DAILY@1900 RF: 0 Discharge Orders: Discharge Order (Routine); Ordered 09/10/20 Ordered By: Alaina Nicolas Admission Data Admit Date/Time: 09/06/20 11:39 Attending Provider: Alaina Nicolas Admit Provider: Wil Linares Primary Care Provider: Mar Zuluaga Other Providers: Jazmine Sadler ; Ash Santillan ; iWl Linares ; Ronni Sanders ; Xiao Rubio ; Yusef Corrales I. ; Neymar Alejandra II ; Miley Dowd ; David Mccall ; Areli Austin. ; Sara Pringle Other Interventions: Discharge Summary Assessment (RN) Last Done: 09/10/20 17:43
--- NOTE | 2020-09-14 13:20 | Operative Report (OR) ---
DATE OF OPERATION: 09/08/2020 PREOPERATIVE DIAGNOSIS: Infected defibrillator pocket. POSTOPERATIVE DIAGNOSIS: Infected defibrillator pocket. PROCEDURE: Dual chamber defibrillator extraction under fluoroscopic guidance. SURGEON: Jazmine Sadler DO. ASSISTANTS: None. ANESTHESIA: Monitored conscious sedation administered under my supervision by Maria Teresa Jacome. Start time 9:03, end time 10:06, a total of 9 mg of Versed, 200 mcg of fentanyl. INTRAVENOUS FLUIDS: 50 mL. URINE OUTPUT: Not applicable. SPECIMENS: None. FINDINGS: See below. DRAINS: None. BLOOD LOSS: 40 mL. CONDITION: Stable. COMPLICATIONS: None. INDICATIONS: This 55-year-old female with history of apical hypertrophic cardiomyopathy, sinus bradycardia and nonsustained VT, family history of sudden cardiac , obstructive sleep apnea on nocturnal hypoxia, gene positive for hypertrophic cardiomyopathy. She underwent a dual chamber ICD on 07/27/2020. Her initial wound check looked okay, but then she presented back showing nonhealing wounds that we have been watching closely in our office over the past month and most of the times keep it dry it looks fine until this week when she took a picture and showed me that when she took off the dressing the entire scab came off. She was admitted to [facility], started on IV antibiotics. Her blood cultures were negative. Wound culture grew out Staph aureus. She was recommended defibrillator extraction. CONSENT: Consent was obtained prior to the patient going into electrophysiology lab. The patient was informed of risks, benefits and alternative of the procedure. Risks include but not limited to sudden cardiac , cardiac arrhythmias, cerebrovascular accident, myocardial infarction, injury to the blood vessels, chamber of the heart, lung, bleeding, and infection. The patient understood these risks and agreed with procedure as planned. Informed consent was obtained. DESCRIPTION OF THE PROCEDURE: The patient was brought into the electrophysiology lab in fasting state. She was connected to continuous cardiac monitoring. A timeout was performed to ensure patient identity and procedure correctly. She was prepped and draped over the left infraclavicular space in normal surgical standard fashion. Monitored conscious sedation was given throughout the procedure for patient's comfort level. Hickman precautions maintained throughout the procedure. She had already received antibiotics in the morning, so we did not give additional antibiotics. 10 mL of 1% lidocaine, bupivacaine mixture were given over the prior surgical incision. Then an elliptical incision was made over the prior surgical incision. The sutures were extracted. A swab of the pocket was obtained. Then I got down to the defibrillator. There really was not any pus appreciated in the pocket. The defibrillator wires were detached from the defibrillator. Then the screws of the leads were unscrewed, the stylets were placed on each of the lead. Then with gentle extraction, the leads smoothly came back out of the heart and out of the body. There was no real active bleeding. In between, the leads were detached from the defibrillator plate, the suture sleeves were removed. The 0 silk suture holding down the lead on the suture sleeves were removed. The pocket was then flushed with copious amounts of bacitracin saline wash and inspected for hemostasis. Then, a 2-0 Ethicon suture was placed in a mattress position to start approximating the wound. Iodoform packing was placed in the wound followed then by a 4 x 4 over the dressing. EQUIPMENT: Explanted generator is [employer] model #[id number], serial number [id number]. The explanted atrial lead was 5076-52 cm, serial number [id number]. The right ventricular explanted lead was a 6935M-62 cm, serial number [id number]. IMPRESSION: Successful dual chamber rate responsive implantable cardiac defibrillator extraction secondary to pocket infection. PLAN: Continue IV antibiotics and then switch to p.o. Nursing Wound Care consult. Patient will probably need home care to help with the packing changes until followup in our office in 1 week's time. I attest to the content of the Intraoperative Record and any orders documented therein. Any exception s are noted below.
== END 2020-09-10 19:21 | disposition home health service (06) | DRG 261 ==
LOC: ED 10:15 → 2S 11:39 → SUATTDRO 11:39 → 2S 12:09